=== PATIENT | female | born 1940 | race Caucasian/White ===

== ENCOUNTER → 2020-04-11 13:04 | Outpatient (BNVA) | payer MEDICARE, OTHER, SELFPAY | PROVIDERS: PCP Internal Medicine; Referring Provider Internal Medicine; Visit Provider Surgery | DX: C34.31 Malignant neoplasm of lower lobe, right bronchus or lung (principal); Z87.891 Personal history of nicotine dependence | CPT/HCPCS: 99205 ==

== ENCOUNTER 2020-04-11 14:25 | Outpatient (REF) | payer MEDICARE, OTHER, SELFPAY ==
--- NOTE | 2020-04-11 16:59 | PFT_ITS ---
FLOWS: FEV1 of 52% of predicted at 1.00 L. FVC 64% of predicted at 1.66 L. FEV1 to FVC ratio of 0.60. No bronchodilator response. LUNG VOLUMES: Total lung capacity 91% of predicted at 4.47 L. Residual volume 108% of predicted at 2.50 L. Slow vital capacity 75% of predicted at 1.97 L. Expiratory reserve volume 42% of predicted at 0.22 L. Diffusion capacity is severely decreased, diffusion capacity adjust to being moderately decreased after correction for alveolar ventilation. IMPRESSION: Moderate to severe obstructive ventilatory defect with no bronchodilator response. Decreased diffusion capacity suggests emphysema. MD MILKA Maurice/MODL / [id number]
== END 2020-04-11 14:26 | disposition home or self-care (01) ==
LOC: HO.RESP 14:25
PROVIDERS: Visit Provider Surgery
DX: R91.1 Solitary pulmonary nodule (principal)
CPT/HCPCS: 94060; 94727; 94729

== ENCOUNTER → 2020-05-02 08:45 | Outpatient (BNVA) | payer MEDICARE, OTHER, SELFPAY | PROVIDERS: PCP Internal Medicine; Visit Provider Surgery | DX: R91.1 Solitary pulmonary nodule (principal) | CPT/HCPCS: 99214 ==

== ENCOUNTER 2020-08-08 12:15 | Outpatient (REF) | payer MEDICARE, OTHER, SELFPAY ==
[2020-08-08 14:49] LABS: Hematocrit 37.3 % (37-47); Hemoglobin 11.4 g/dl (12.0-16.0); Mean Corpuscular HGB Conc 30.6 g/dl (31.0-35.0); Mean Corpuscular Hemoglobin 27.6 pg (27.0-33.0); Mean Corpuscular Volume 90.3 fL (80-98); Mean Platelet Volume 10.7 fL (9.4-12.3); Platelet Count 206 X10*3/uL (160-400); Red Blood Count 4.13 X10*6/uL (4.20-5.50); Red Cell Distribution Width 14.2 % (11.0-16.0); White Blood Count 6.8 X10*3/uL (4.8-10.8)
[2020-08-08 14:53] LABS: Estimated Average Glucose 146 mg/dL; Hemoglobin A1c % 6.7 %
[2020-08-08 15:14] LABS: Alanine Aminotransferase 20 U/L (0-31); Albumin Level 4.4 g/dL (3.5-5.0); Alkaline Phosphatase 56 U/L (39-117); Anion Gap 17 (12-20); Aspartate Amino Transferase 25 U/L (5-31); Bilirubin Total 0.5 mg/dL (0.0-1.0); Blood Urea Nitrogen 28 mg/dL (9-16); Calcium 8.9 mg/dL (8.4-10.2); Carbon Dioxide 20 mmol/L (22-29); Chloride 107 mmol/L (96-108); Estimated Glomerular Filt Rate 32; Glucose Fasting 109 mg/dL (60-99); Potassium 4.4 mmol/L (3.3-5.1); Sodium 140 mmol/L (135-145); Total Protein 7.7 g/dL (6.5-8.0)
== END 2020-08-08 12:16 | disposition home or self-care (01) ==
LOC: HO.HMGCLDS 12:15
PROVIDERS: PCP Internal Medicine; Visit Provider Internal Medicine
DX: R60.9 Edema, unspecified (principal); E11.22 Type 2 diabetes mellitus with diabetic chronic kidney disease; N18.30 Chronic kidney disease, stage 3 unspecified
CPT/HCPCS: 36415; 80048; 80053; 83036; 85027

== ENCOUNTER 2021-03-20 15:15 | Outpatient (REF) | payer MEDICARE, OTHER, SELFPAY ==
--- NOTE | ~2021-03-20 | XR_ITS ---
EXAMINATION: XR CHEST CLINICAL INFORMATION: J44.9 - Chronic obstructive pulmonary disease, unspecified COMPARISON: None TECHNIQUE: 2 views of the chest were obtained. FINDINGS: There is a small right effusion blunting the lateral and posterior costophrenic sulci. There is no lobar or segmental airspace consolidation or vascular congestion. The left costophrenic angles are well-defined. The heart is normal in size. The hilar and mediastinal contours and visualized bony structures are unremarkable. Surgical clips are seen in the upper abdomen on the lateral view. XR/XR chest 2V IMPRESSION: Small right effusion. Heart size normal. Vascularity normal.
== END 2021-03-20 15:16 | disposition home or self-care (01) ==
LOC: HO.HMGCX 15:15
PROVIDERS: PCP Internal Medicine; Visit Provider Internal Medicine
DX: J44.9 Chronic obstructive pulmonary disease, unspecified (principal)
CPT/HCPCS: 71046

== ENCOUNTER 2021-09-04 13:08 | Outpatient (REF) | payer MEDICARE, OTHER, SELFPAY ==
[2021-09-04 16:43] LABS: Hematocrit 34.6 % (37.0-47.0); Hemoglobin 10.6 g/dl (12.0-16.0); Mean Corpuscular HGB Conc 30.6 g/dl (31.0-35.0); Mean Corpuscular Volume 88.3 fL (80.0-98.0); Platelet Count 229 X10*3/uL (160-400); Red Blood Count 3.92 X10*6/uL (4.20-5.50); Red Cell Distribution Width 15.1 % (11.0-16.0); White Blood Count 6.6 X10*3/uL (4.8-10.8)
[2021-09-04 16:56] LABS: Alanine Aminotransferase 19 U/L (0-31); Albumin Level 4.2 g/dL (3.5-5.0); Alkaline Phosphatase 56 U/L (39-117); Anion Gap 15 (12-20); Aspartate Amino Transferase 18 U/L (5-31); Bilirubin Total 0.7 mg/dL (0.0-1.0); Blood Urea Nitrogen 25 mg/dL (9-16); Calcium 9.6 mg/dL (8.4-10.2); Carbon Dioxide 21 mmol/L (22-29); Chloride 106 mmol/L (96-108); Cholesterol 299 mg/dL; Creatinine Urine 66.69 mg/dL; Estimated Glomerular Filt Rate 34; Glucose Fasting 126 mg/dL (60-99); HDL Cholesterol 57 mg/dL; LDL Cholesterol Calculated 211 mg/dl; Microalbum/Creatinine Ratio Ur 239.9 ug/mg cr; Potassium 4.6 mmol/L (3.3-5.1); Sodium 137 mmol/L (135-145); Total Protein 7.4 g/dL (6.5-8.0); Triglycerides 157 mg/dL
[2021-09-04 16:57] LABS: Estimated Average Glucose 128 mg/dL; Hemoglobin A1c % 6.1 %
[2021-09-04 17:16] LABS: TSH reflex Free T4 4.01 uIU/mL (0.32-4.0)
[2021-09-04 18:05] LABS: Free T4 (Free Thyroxine) 0.94 ng/dL (0.71-1.85)
== END 2021-09-04 13:09 | disposition home or self-care (01) ==
LOC: HO.HMGCLDS 13:08
PROVIDERS: PCP Internal Medicine; Visit Provider Internal Medicine
DX: E78.5 Hyperlipidemia, unspecified (principal); J44.9 Chronic obstructive pulmonary disease, unspecified; I12.9 Hypertensive chronic kidney disease with stage 1 through stage 4 chronic kidney disease, or unspecified chronic kidney disease; E11.22 Type 2 diabetes mellitus with diabetic chronic kidney disease; N18.30 Chronic kidney disease, stage 3 unspecified
CPT/HCPCS: 36415; 80053; 80061; 82043; 83036; 84439; 84443; 85027

== ENCOUNTER 2022-01-13 11:07 | Outpatient (REF) | payer MEDICARE, OTHER, SELFPAY ==
--- NOTE | ~2022-01-13 | XR_ITS ---
EXAMINATION: XR CHEST CLINICAL INFORMATION: Cough. COMPARISON: March 20, 2021. TECHNIQUE: 2 views of the chest were obtained. XR/XR chest 2V FINDINGS/IMPRESSION: Blunting of the right costophrenic angle appears unchanged, suggesting small pleural fluid, pleural thickening, fibrotic changes, atelectasis, and/or infiltrate. The left lung appears clear. No pneumothorax is seen. The heart appears upper normal in size. The aorta is atherosclerotic. The patient is status post cholecystectomy.
== END 2022-01-13 11:08 | disposition home or self-care (01) ==
LOC: HO.HMGCX 11:07
PROVIDERS: PCP Internal Medicine; Visit Provider Internal Medicine
DX: R05.9 Cough, unspecified (principal)
CPT/HCPCS: 71046

== ENCOUNTER → 2022-04-09 13:29 | Outpatient (REF) | payer MEDICARE, OTHER, SELFPAY ==
--- NOTE | 2022-04-09 13:34 | CA_ITS ---
Transthoracic Echocardiogram Patient (Last, First, Middle): Cori Rogers, Gender: Female Date of : 1940 Age: 82 Procedure Date: 04/09/2022 Procedure Type: Transthoracic Echocardiogram Location: OP Height: 162.56 cm Weight: 66.68 kg BSA: 1.72 m2 Heart Rate: 75 bpm BP: 134 / 62 mmHg Blacking Wheel Tender: SB Referring MD: Jaimee Shah MD Logistics Management Specialist: Kit Brandt MD Symptoms: R60.9 - Edema, unspecified Study Quality: Adequate ECG Rhythm: Sinus Conclusions: - 1. Normal LV systolic function with grade 2 diastolic dysfunction 2. Mildly dilated right atrium 3. Mild aortic stenosis 4. Severely elevated right ventricular systolic pressure, immediately post walking to the stretcher her RV systolic pressure was 95 mmHg 5. No gross pericardial effusion Findings Left Ventricle Normal left ventricular size, thickness, and systolic function. The visually estimated ejection fraction is between 55-60%. Spectral Doppler is indicative of a pseudonormal filling pattern. E/E prime ratio is >15, consistent with elevated filling pressures. Evidence suggests grade II (moderate) diastolic dysfunction. Right Ventricle Normal right ventricular cavity size. There is mildly decreased right ventricular systolic function. Atria The left atrium is likely dilated. Interatrial shunt cannot be excluded. The right atrium is mildly dilated. Aortic Valve There is moderate calcification of the aortic valve. There is moderate thickening of the aortic valve. There is mild aortic valve stenosis. The peak aortic gradient is 15 mmHg.The mean gradient is 9 mmHg. There is no aortic valve regurgitation. Mitral Valve There is mild anterior and posterior mitral leaflet thickening. There is mild mitral annular calcification. There is trace mitral valve regurgitation. There is no mitral valve stenosis. Pulmonic Valve The pulmonic valve was not well visualized. Tricuspid Valve Normal tricuspid valve structure. There is moderate tricuspid valve regurgitation. Mildly elevated right atrial pressure. Severe pulmonary hypertension is present. Initial measurements of RV systolic pressure when patient walked to the examination table was measured at 95 mmHg. After resting and scanning for 15-20 minutes patient's RV systolic pressure had reduced to 65 mmHg still severely elevated Great Vessels All visible segments of the aorta are normal in size. The pulmonary artery was not well visualized. Venous The inferior vena cava is mildly dilated and collapses less than 50% with inspiration. Pericardium/Pleural There is no evidence of pericardial effusion. Prior Study Comparison No prior study available for comparison. Measurements 2D Linear Measurements IVSd: 0.72 0.6-0.9/0.6-1.0 cm LVIDd: 4.46 3.9-5.3/4.2-5.9 cm LVIDd Index: 2.59 2.4-3.2/2.2-3.1 cm/m2 LVIDs: 3.01 2.0-3.6 cm LVPWd: 1.01 0.7-1.1 cm LA Diam: 4.20 2.7-3.8/3.0-4.0 cm LAIDs Index: 2.44 1.5-2.3 cm/m2 LV Mass: 153.80 67-162/88-224 g LV Mass Index: 89.42 43-95/49-115 g/m2 LVOT Diam: 1.90 3.0+(-)1.3 cm 2D Systolic Function EF 4C: 62.60 >55% EF 2C: 53.90 >55% EF BiP: 57.80 >55% Mitral Valve MV Pk E: 1.22 MV PK A: 0.77 MV Decel Time: 197.00 E/A: 1.60 E'Lateral: 5.98 E'Medial: 6.09 E/E' Med: 20.00 E/E' Lat: 20.40 PHT: 58.00 MVA PHT: 3.79 Decel Nome: 6.19 Aortic Valve AoV Pk Deng: 1.94 AoV Mn Deng: 1.46 AoV VTI: 0.48 AoV Pk Grad: 15.00 Aov Mn Grad: 9.00 OSEAS Cont.VTI: 1.37 LVOT LVOT Pk Deng: 0.94 LVOT Mn Deng: 0.67 LVOT VTI: 0.24 LVOT Pk Grad: 4.00 LVOT Mn Grad: 2.00 LVOT Diam: 1.90 LVOT Area: 2.84 Diastolic Function MV Pk E: 1.22 MV Pk A: 0.77 E/A: 1.60 E'Medial: 6.09 E/E' Med: 20.00 E' Laterial: 5.98 E/E' Lat: 20.40 Tricuspid Valve TR Pk Deng: 4.66 TR Pk Grad: 87.00 RA Press: 8.00 RVSP: 95.00 Great Vessels Aorta Sinus of Valsalva: 2.80 2.0-3.5 cm Pulmonary Valve PV Pk Deng: 1.39 Peak PV Grad: 8.00 Updated in Other Vendor System with Status of Final Kit Brandt MD electronically signed on 04/09/2022 3:46:55 PM with status of Final
== END ==
LOC: HO.CARD 13:29
PROVIDERS: PCP Internal Medicine; Visit Provider Internal Medicine
DX: I50.9 Heart failure, unspecified (principal); R60.9 Edema, unspecified
CPT/HCPCS: 93306

== ENCOUNTER 2022-04-21 12:50 | Outpatient (REF) | payer MEDICARE, OTHER, SELFPAY ==
[2022-04-21 14:48] LABS: Anion Gap 17 (12-20); Blood Urea Nitrogen 30 mg/dL (9-16); Calcium 9.3 mg/dL (8.4-10.2); Carbon Dioxide 23 mmol/L (22-29); Chloride 106 mmol/L (96-108); Estimated Glomerular Filt Rate 30; Glucose Random 130 mg/dL (60-115); Potassium 4.8 mmol/L (3.3-5.1); Sodium 141 mmol/L (135-145)
== END 2022-04-21 12:51 | disposition home or self-care (01) ==
LOC: HO.HMGCLDS 12:50
PROVIDERS: PCP Internal Medicine; Visit Provider Internal Medicine
DX: I50.9 Heart failure, unspecified (principal); J44.9 Chronic obstructive pulmonary disease, unspecified; G47.30 Sleep apnea, unspecified; I27.20 Pulmonary hypertension, unspecified
CPT/HCPCS: 36415; 80048

== ENCOUNTER 2022-06-22 12:46 | Outpatient (REF) | payer MEDICARE, OTHER, SELFPAY ==
--- NOTE | ~2022-06-22 | US_ITS ---
EXAMINATION: ANKLE-BRACHIAL INDICES SINGLE LEVEL PULSE VOLUME RECORDING ARTERIAL DUPLEX BILATERAL LEGS CLINICAL INFORMATION: Peripheral vascular disease. COMPARISON: CTA 01/25/2020. TECHNIQUE: Ankle-brachial indices and PVR at the ankle were obtained. Duplex Doppler of the bilateral lower extremity arterial systems was performed. FINDINGS: RIGHT: Ankle-brachial index: 0.45 PVR: Abnormal Common femoral: Short segment occlusion. Deep femoral: PSV 57 cm/s. Biphasic waveform. Proximal superficial femoral: Occluded. Mid superficial femoral: PSV 27 cm/s. Biphasic waveform. Distal superficial femoral: PSV 89 cm/s. Monophasic waveform. Popliteal: PSV 47 cm/s. Monophasic waveform. Posterior tibial: PSV 20 cm/s. Monophasic waveform. Peroneal: PSV 27 cm/s. None of these waveform. LEFT: Ankle-brachial index: 0.40 PVR: Abnormal Common femoral: PSV 67 cm/s. Monophasic waveform. Deep femoral: PSV 37 cm/s. Monophasic waveform. Proximal superficial femoral: PSV 63 cm/s. Biphasic waveform. Mid superficial femoral: PSV 63 cm/s. 5 waveform. Distal superficial femoral: PSV 57 cm/s. Monophasic waveform. Popliteal: PSV 37 cm/s. Monophasic waveform. Posterior tibial: PSV 30 cm/s. Monophasic waveform. Peroneal: PSV 15 cm/s. Monophasic waveform. US/US arterial duplex LE BI IMPRESSION: Right: BILL 0.45. Abnormal PVR. Short segment occlusion common femoral artery appears new from prior CTA. Occluded proximal superficial femoral artery similar to prior CTA. Left: BILL 0.40. Abnormal PVR. Monophasic BLUING OVEN TENDER waveform indicates inflow disease. On the prior CTA the iliac artery was occluded.
== END 2022-06-22 12:47 | disposition home or self-care (01) ==
LOC: HO.US 12:46
PROVIDERS: PCP Internal Medicine; Visit Provider Surgery Vascular Surgery
DX: I70.213 Atherosclerosis of native arteries of extremities with intermittent claudication, bilateral legs (principal)
CPT/HCPCS: 93925

== ENCOUNTER → 2022-07-06 10:45 | Outpatient (REF) | payer MEDICARE, OTHER, SELFPAY | LOC: HO.SL 10:45 | PROVIDERS: Visit Provider Internal Medicine | DX: G47.30 Sleep apnea, unspecified (principal); R06.83 Snoring; I27.20 Pulmonary hypertension, unspecified; I73.9 Peripheral vascular disease, unspecified; I65.23 Occlusion and stenosis of bilateral carotid arteries; I83.11 Varicose veins of right lower extremity with inflammation | CPT/HCPCS: 95806; 99212 ==

== ENCOUNTER 2022-07-07 13:02 | Outpatient (REF) | payer MEDICARE, OTHER, SELFPAY ==
[2022-07-07 13:20] LABS: MANUAL DIFF FLAG NO
[2022-07-07 14:10] LABS: Basophils Absolute Auto 0.1 X10*3/uL (0.0-0.2); Basophils Percent Auto 1.2 % (0-2); Eosinophils Absolute Auto 0.1 X10*3/uL (0.0-0.4); Eosinophils Percent Auto 1.9 % (0-4); Hematocrit 37.2 % (37.0-47.0); Hemoglobin 11.6 g/dl (12.0-16.0); Imm Gran Abs Auto 0.05 X10*3/uL (0.00-0.03); Imm Gran Pct Auto 0.7 % (0.0-0.4); Lymphocytes Absolute Auto 1.3 X10*3/uL (1.2-4.9); Lymphocytes Percent Auto 17.8 % (20-40); Mean Corpuscular HGB Conc 31.2 g/dl (31.0-35.0); Mean Corpuscular Hemoglobin 27.8 pg (27.0-33.0); Mean Platelet Volume 10.2 fL (9.4-12.3); Monocytes Absolute Auto 0.6 X10*3/uL (0.1-1.2); Monocytes Percent Auto 7.5 % (2-11); Neutrophils Absolute Auto 5.3 x10*3/uL (2.0-8.3); Neutrophils Percent Auto 70.9 % (45-73); Platelet Count 225 X10*3/uL (160-400); Red Blood Count 4.18 X10*6/uL (4.20-5.50); Red Cell Distribution Width 15.1 % (11.0-16.0); White Blood Count 7.5 X10*3/uL (4.8-10.8)
[2022-07-07 14:15] LABS: Alanine Aminotransferase 20 U/L (0-31); Alkaline Phosphatase 54 U/L (39-117); Anion Gap 14 (12-20); Aspartate Amino Transferase 20 U/L (5-31); Blood Urea Nitrogen 28 mg/dL (9-16); Calcium 8.7 mg/dL (8.4-10.2); Carbon Dioxide 19 mmol/L (22-29); Chloride 113 mmol/L (96-108); Cholesterol 165 mg/dL; Estimated Glomerular Filt Rate 28; Glucose Fasting 225 mg/dL (60-99); HDL Cholesterol 41 mg/dL; LDL Cholesterol Calculated 101 mg/dl; Magnesium 1.7 mg/dL (1.6-2.6); Potassium 4.1 mmol/L (3.3-5.1); Sodium 142 mmol/L (135-145); Total Protein 6.5 g/dL (6.5-8.0); Triglycerides 117 mg/dL
[2022-07-07 14:24] LABS: Creatinine Urine 138.74 mg/dL; Microalbum/Creatinine Ratio Ur 125.4 ug/mg cr
[2022-07-07 14:45] LABS: Estimated Average Glucose 177 mg/dL; Hemoglobin A1c % 7.8 %
== END 2022-07-07 13:03 | disposition home or self-care (01) ==
LOC: HO.LAB 13:02
PROVIDERS: PCP Internal Medicine; Visit Provider Surgery Vascular Surgery
DX: E83.42 Hypomagnesemia (principal); E78.5 Hyperlipidemia, unspecified; C34.90 Malignant neoplasm of unspecified part of unspecified bronchus or lung; J44.9 Chronic obstructive pulmonary disease, unspecified; E11.51 Type 2 diabetes mellitus with diabetic peripheral angiopathy without gangrene; E11.22 Type 2 diabetes mellitus with diabetic chronic kidney disease; I13.0 Hypertensive heart and chronic kidney disease with heart failure and stage 1 through stage 4 chronic kidney disease, or unspecified chronic kidney disease; N18.30 Chronic kidney disease, stage 3 unspecified
CPT/HCPCS: 36415; 80053; 80061; 82043; 83036; 83735; 85025

== ENCOUNTER 2022-07-23 13:25 | Outpatient (REF) | payer MEDICARE, OTHER, SELFPAY ==
--- NOTE | ~2022-07-23 | MR_ITS ---
STUDY PERFORMED: MRA ABDOMEN, PELVIS AND LOWER EXTREMITY RUNOFF WITH CONTRAST CLINICAL HISTORY: Peripheral vascular disease. DESCRIPTION: Routine abdominal aorta and lower extremity runoff MRA protocol without and with contrast was performed. 30 mL of Gadavist was administered. 3D POSTPROCESSING: Multiple 3-D angiographic images were processed from the initial data set by the [facility] under concurrent physician supervision. COMPARISON: Arterial duplex 06/22/[address] abdomen and pelvis with runoff 01/25/2020. FINDINGS: VASCULAR: Abdominal Aorta: The descending thoracic aorta and the upper abdominal aorta are unremarkable. Severe atherosclerotic changes with multiple areas of narrowing and irregular plaque seen in the infrarenal abdominal aorta. Right Lower Extremity: - Common Iliac Artery: Marked atherosclerotic changes with multiple stenoses. - Internal Iliac Artery: Patent with marked atherosclerotic change. - External Iliac Artery: No significant disease. - Common Femoral Artery: Patent. - Profunda Femoral Artery: Patent. - Superficial Femoral Artery: Occluded proximally, reconstituted distally. - Popliteal Artery: No significant disease. - Tibioperoneal Trunk: Patent. - Posterior Tibial Artery: Small and occludes midcalf. - Peroneal Artery: Small with distal collateral going towards the posterior tibial artery territory. - Anterior Tibial Artery: Widely patent and the largest runoff vessel to the foot. Left Lower Extremity: - Common Iliac Artery: Occluded. - Internal Iliac Artery: Occluded. - External Iliac Artery: Occluded. - Common Femoral Artery: Reconstituted via collaterals. - Profunda Femoral Artery: Patent. - Superficial Femoral Artery: Patent. - Popliteal Artery: Patent. - Tibioperoneal Trunk: Patent. - Posterior Tibial Artery: Widely patent. - Peroneal Artery: Small caliber but patent to distal calf. - Anterior Tibial Artery: Free of disease but seems to end blindly before the dorsum of the foot with no flow seen into the foot. Celiomesenteric Arteries: There is a tight origin celiac stenosis. The SMA has mild proximal disease. There is an origin stenosis of the JAVIER. Renal Arteries: Single renal arteries present bilaterally with severe proximal stenoses. When comparison is made to the prior CTA from 01/25/2020, appearances are fairly similar. NONVASCULAR: A large fibroid uterus is again noted. MR/MR angio LE LT wo/w con IMPRESSION: 1. Severe atherosclerotic changes in the infrarenal abdominal aorta with multiple stenoses. 2. On the right, there are multiple external iliac stenoses with patent common femoral artery but occluded superficial femoral artery with reconstituted distal SFA/popliteal and good two-vessel runoff via the anterior tibial and peroneal arteries. 3. On the left, there is an occluded common iliac and external iliac artery with reconstituted common femoral artery and SFA with good three-vessel runoff. 4. Bilateral severe renal artery stenoses. 5. Other incidental findings as described above.
== END 2022-07-23 13:26 | disposition home or self-care (01) ==
LOC: HO.MRI 13:25
PROVIDERS: PCP Internal Medicine; Visit Provider Surgery Vascular Surgery
DX: I70.213 Atherosclerosis of native arteries of extremities with intermittent claudication, bilateral legs (principal)
CPT/HCPCS: 73725; 74185; A9585

== ENCOUNTER → 2022-07-27 12:54 | Outpatient (BNVA) | payer MEDICARE, OTHER, SELFPAY | PROVIDERS: PCP Internal Medicine; Visit Provider Surgery Vascular Surgery | DX: I65.23 Occlusion and stenosis of bilateral carotid arteries (principal); I83.11 Varicose veins of right lower extremity with inflammation; I73.9 Peripheral vascular disease, unspecified | CPT/HCPCS: 99212 ==

== ENCOUNTER → 2022-10-26 12:44 | Outpatient (BNVA) | payer MEDICARE, OTHER, SELFPAY | PROVIDERS: PCP Internal Medicine; Visit Provider Surgery Vascular Surgery | DX: I83.11 Varicose veins of right lower extremity with inflammation (principal); I65.23 Occlusion and stenosis of bilateral carotid arteries | CPT/HCPCS: 99212 ==

== ENCOUNTER 2022-11-16 12:37 | Outpatient (REF) | payer MEDICARE, OTHER, SELFPAY | END 2022-11-16 12:38 | disposition home or self-care (01) | LOC: HO.US 12:37 | PROVIDERS: PCP Internal Medicine; Visit Provider Surgery Vascular Surgery | DX: I83.11 Varicose veins of right lower extremity with inflammation (principal) | CPT/HCPCS: 93970 ==

== ENCOUNTER → 2022-11-25 10:47 | Outpatient (BNVA) | payer MEDICARE, OTHER, SELFPAY | PROVIDERS: PCP Internal Medicine; Visit Provider Surgery Vascular Surgery | DX: I83.11 Varicose veins of right lower extremity with inflammation (principal); I65.23 Occlusion and stenosis of bilateral carotid arteries; I73.9 Peripheral vascular disease, unspecified; I89.0 Lymphedema, not elsewhere classified | CPT/HCPCS: 99212 ==

== ENCOUNTER 2022-12-06 08:53 | Outpatient (AMB) | payer MEDICARE, OTHER, SELFPAY ==
[2022-12-06 08:57] VITALS: BP 120/64; PULSE 54; O2SAT 94; BMI 26.9
--- NOTE | 2022-12-06 08:57 | MHC.PC.OV ---
Vital Signs 12/06/22 08:57 Height 5 ft 2 in Weight 147 lb BMI 26.9 BP 120/64 Blood Pressure Location Lt brachial Position Sitting Pulse 54 Pulse Source Pulse Oximeter Pulse Oximetry (%) 94 Oxygen Delivery Method Room Air Intake Visit Reasons: Follow up complex Intake Note: Pt is here today for a follow up visit on DM. Allergies fluticasone furoate [From Trelegy Ellipta] Allergy (Intermediate, Verified 12/06/22 09:20) Cough umeclidinium [From Trelegy Ellipta] Allergy (Intermediate, Verified 12/06/22 09:20) Cough vilanterol [From Trelegy Ellipta] Allergy (Intermediate, Verified 12/06/22 09:20) Cough lisinopril Allergy (Unknown, Verified 12/06/22 09:20) hyperkalemia, worsening GFR Penicillins [PENICILLINS] Allergy (Unknown, Verified 12/06/22 09:20) RASH Medication List - Last Reconciled 12/06/22 by Jaimee Shah MD albuterol sulfate 90 mcg/actuation 2 puffs inhalation Q6H PRN amlodipine 2.5 mg PO DAILY Basaglar KwikPen U-100 Insulin (insulin glargine) 20 subcutaneously every evening; NS clobetasol 0.05% grams topical BID dapagliflozin propanediol (Farxiga) 10 mg PO DAILY difluprednate 0.05% 1 drp ophthalmic-Right DAILY dorzolamide-timolol 22.3-6.8 mg/mL 1 drp ophthalmic-Right DAILY ergocalciferol (vitamin D2) 1,250 mcg PO QWEEK flu vac qv 2019(18yr up)rc(PF) mL IM furosemide 20 mg PO DAILY hydralazine 50 mg PO BID metoprolol succinate ER 100 mg PO DAILY pen needle, diabetic As directed once a day to inject insulin pravastatin 40 mg PO DAILY Trelegy Ellipta 200-62.5-25 mcg ([id number]-kqkkfoszb-tknvlvra) 1 ea PO DAILY NS Tobacco use date assessed: 10/29/22 Dental Screening Dental Screen Date: 12/06/22 Did you have a dental visit in the last 12 months?: Yes Did you have a dental problem in the last 6 months where you did not have access to dental care?: No Was dental information given to patient?: Patient has dentist HPI Follow up complex HPI Details Pt presents for f/u HTN, hyperlipid,DM 2, CKD 3, stable on meds. Patient complains of worsening lower extremity swelling in the hot humid weather. 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 Patient cannot tolerate furosemide more than every other day because of leg cramps. She follows up with thoracic surgeon for new diagnosis of left lung nodule, question of cancer. Patient refuses to have a lung biopsy done. COPD stable on Trelegy. FORMERLY [facility] Medical History Cellulitis Chest pain CKD (chronic kidney disease), stage III COPD (chronic obstructive pulmonary disease) Diabetes Edema Enlarged uterus Glaucoma History of mammogram HTN (hypertension) Hyperlipidemia Hypomagnesemia Lung cancer Lung nodule PAD (peripheral artery disease) Pelvic mass Peripheral vascular disease Pneumonia Pruritus Surgical History H/O colonoscopy Family History Father No problems noted. Mother No problems noted. Social History Housing: House Alcohol intake: unknown Patient Tobacco Use Status: Former Tobacco user Quit Date: 4 years ago e-Cigarette/Vaping Use: Never Used Current occupational status: retired Cognitive needs: No Hearing needs: No Vision needs: No Questionnaire Thrive Questionnaire Date Thrive assessed: 08/24/22 OLIVIA-7 AMB Questionnaire OLIVIA-7 Date OLIVIA - 7 assessed: 08/24/22 Source: Developed by Drs. Tomasz Singh, Sandie Waller, Andrés Bobby and colleagues, with an educational shazia from [email or web address]. Review of Systems Const All systems reviewed & are unremarkable except as noted in HPI and below Reports no additional complaints Eyes Reports no additional complaints ENT Reports no additional complaints Card Reports no additional complaints Resp Reports no additional complaints GI Reports no additional complaints Reports no additional complaints Physical exam (Primary Care) Vital Signs: Last Vital Signs Pulse 54 12/06/22 08:57 BP 120/64 12/06/22 08:57 Pulse Ox 94 12/06/22 08:57 Oxygen Delivery Method Room Air 12/06/22 08:57 BMI result Body Mass Index 26.9 Tobacco/Smoking Status: Tobacco use Status Tobacco use date assessed 10/29/22 12/06/22 08:58 Patient Tobacco Use Status Former Tobacco user 12/06/22 08:58 e-Cigarette/Vaping Use Never Used 12/06/22 08:58 Thrive Assessment: Date of Thrive Assessment Date Thrive assessed 08/24/22 12/06/22 08:58 Const General: no acute distress HENMT Head: Yes normal to inspection Ears: hearing grossly normal bilaterally Face and sinus: Yes normal facial exam Neck Neck: Yes supple Resp Effort & Inspection: normal respiratory effort Auscultation: clear to auscultation bilaterally Cardio Rhythm: regular rhythm Heart sounds: S1 normal heart sound present and S2 normal heart sound present GI Inspection: Yes normal to inspection Percussion: Yes normal to percussion Auscultation: normal bowel sounds Extrem Other: + 2 pitting edema, chronic venous stasis Assessment and Plan Assessment & Plan (1) Lymphedema: Code(s): I89.0 - Lymphedema, not elsewhere classified Plan: Continue diuretic and elevation (2) Hyperlipidemia: Code(s): E78.5 - Hyperlipidemia, unspecified Plan: Continue statin (3) HTN (hypertension): Comment: Intolerant to ACEI/ARB hyperkalemia/ worsening renal function Code(s): I10 - Essential (primary) hypertension Plan: Continue current medications (4) COPD (chronic obstructive pulmonary disease): Code(s): J44.9 - Chronic obstructive pulmonary disease, unspecified Plan: Continue Trelegy (5) Diabetes: Comment: Metformin discontinued due to worsening renal function 02/11 Code(s): E11.9 - Type 2 diabetes mellitus without complications Plan: Patient will have fasting labs including A1c today (6) CKD (chronic kidney disease), stage III: Comment: Referred to turn down worker Code(s): N18.30 - Chronic kidney disease, stage 3 unspecified Plan: Avoid NSAIDs check renal function, follow-up in 3 months with a fasting labs before Coding Level of Care Code Est Pt Level 4 (06271) Diagnoses Lymphedema I89.0 Hyperlipidemia E78.5 HTN (hypertension) I10 COPD (chronic obstructive pulmonary disease) J44.9 Diabetes E11.9 CKD (chronic kidney disease), stage III N18.30
== END 2022-12-06 10:13 | disposition home or self-care (01) ==
PROVIDERS: PCP Internal Medicine; Visit Provider Internal Medicine
DX: E11.22 Type 2 diabetes mellitus with diabetic chronic kidney disease (principal); I12.9 Hypertensive chronic kidney disease with stage 1 through stage 4 chronic kidney disease, or unspecified chronic kidney disease; N18.30 Chronic kidney disease, stage 3 unspecified; J44.9 Chronic obstructive pulmonary disease, unspecified; E78.5 Hyperlipidemia, unspecified; I89.0 Lymphedema, not elsewhere classified
CPT/HCPCS: 99214

== ENCOUNTER 2022-12-06 09:54 | Outpatient (REF) | payer MEDICARE, OTHER, SELFPAY ==
[2022-12-06 13:31] LABS: MANUAL DIFF FLAG NO
[2022-12-06 13:54] LABS: Basophils Absolute Auto 0.1 X10*3/uL (0.0-0.2); Eosinophils Absolute Auto 0.3 X10*3/uL (0.0-0.4); Eosinophils Percent Auto 3.3 % (0-4); Hematocrit 40.5 % (37.0-47.0); Hemoglobin 12.5 g/dl (12.0-16.0); Imm Gran Abs Auto 0.05 X10*3/uL (0.00-0.03); Imm Gran Pct Auto 0.7 % (0.0-0.4); Lymphocytes Absolute Auto 1.6 X10*3/uL (1.2-4.9); Lymphocytes Percent Auto 20.8 % (20-40); Mean Corpuscular HGB Conc 30.9 g/dl (31.0-35.0); Mean Corpuscular Volume 90.6 fL (80.0-98.0); Mean Platelet Volume 10.5 fL (9.4-12.3); Monocytes Absolute Auto 0.9 X10*3/uL (0.1-1.2); Monocytes Percent Auto 11.3 % (2-11); Neutrophils Absolute Auto 4.8 x10*3/uL (2.0-8.3); Neutrophils Percent Auto 62.9 % (45-73); Platelet Count 220 X10*3/uL (160-400); Red Blood Count 4.47 X10*6/uL (4.20-5.50); Red Cell Distribution Width 14.8 % (11.0-16.0); White Blood Count 7.7 X10*3/uL (4.8-10.8)
[2022-12-06 14:21] LABS: Estimated Average Glucose 174 mg/dL; Hemoglobin A1c % 7.7 %
[2022-12-06 14:42] LABS: Alanine Aminotransferase 16 U/L (0-31); Albumin Level 4.3 g/dL (3.5-5.0); Alkaline Phosphatase 60 U/L (39-117); Anion Gap 13 (12-20); Aspartate Amino Transferase 18 U/L (5-31); Bilirubin Total 0.7 mg/dL (0.0-1.0); Blood Urea Nitrogen 46 mg/dL (9-16); Calcium 9.7 mg/dL (8.4-10.2); Carbon Dioxide 22 mmol/L (22-29); Chloride 109 mmol/L (96-108); Cholesterol 173 mg/dL; Estimated Glomerular Filt Rate 17; Glucose Fasting 190 mg/dL (60-99); HDL Cholesterol 44 mg/dL; LDL Cholesterol Calculated 111 mg/dl; Potassium 4.2 mmol/L (3.3-5.1); Sodium 140 mmol/L (135-145); Total Protein 7.4 g/dL (6.5-8.0); Triglycerides 90 mg/dL
== END 2022-12-06 09:55 | disposition home or self-care (01) ==
LOC: HO.HMGCLDS 09:54
PROVIDERS: PCP Internal Medicine; Visit Provider Internal Medicine
DX: I12.9 Hypertensive chronic kidney disease with stage 1 through stage 4 chronic kidney disease, or unspecified chronic kidney disease (principal); E11.22 Type 2 diabetes mellitus with diabetic chronic kidney disease; N18.30 Chronic kidney disease, stage 3 unspecified
CPT/HCPCS: 36415; 80053; 80061; 83036; 85025

== ENCOUNTER 2023-01-25 11:58 | Outpatient (AMB) | payer MEDICARE, OTHER, SELFPAY ==
--- NOTE | 2023-01-25 12:34 | MHC.PC.OV ---
Vital Signs 01/25/23 12:55 Height 5 ft 2 in Weight 145 lb BMI 26.5 BP 124/62 Blood Pressure Location Lt brachial Position Sitting Pulse 68 Pulse Source Pulse Oximeter Pulse Oximetry (%) 95 Oxygen Delivery Method Room Air Intake Visit Reasons: congestion cough same as last time Intake Note: Pt is here today for a sick visit. Pt c/o congestion cough for week and a half. Allergies fluticasone furoate [From Trelegy Ellipta] Allergy (Intermediate, Verified 01/25/23 13:05) Cough umeclidinium [From Trelegy Ellipta] Allergy (Intermediate, Verified 01/25/23 13:05) Cough vilanterol [From Trelegy Ellipta] Allergy (Intermediate, Verified 01/25/23 13:05) Cough lisinopril Allergy (Unknown, Verified 01/25/23 13:05) hyperkalemia, worsening GFR Penicillins [PENICILLINS] Allergy (Unknown, Verified 01/25/23 13:05) RASH Medication List - Last Reconciled 01/25/23 by Jaimee Shah MD albuterol sulfate 90 mcg/actuation 2 puffs inhalation Q6H PRN amlodipine 2.5 mg PO DAILY clobetasol 0.05% grams topical BID dapagliflozin propanediol (Farxiga) 10 mg PO DAILY difluprednate 0.05% 1 drp ophthalmic-Right DAILY dorzolamide-timolol 22.3-6.8 mg/mL 1 drp ophthalmic-Right DAILY ergocalciferol (vitamin D2) 1,250 mcg PO QWEEK flu vac qv 2019(18yr up)rc(PF) mL IM furosemide 20 mg PO DAILY hydralazine 50 mg PO BID insulin glargine (Basaglar KwikPen U-100 Insulin) 20 subcutaneously daily; metoprolol succinate ER 100 mg PO DAILY pen needle, diabetic As directed once a day to inject insulin pravastatin 40 mg PO DAILY Trelegy Ellipta 200-62.5-25 mcg (dokqtaqbueg-nvcqvogcv-[id number]) 1 ea PO DAILY NS Tobacco use date assessed: 10/29/22 HPI congestion cough same as last time HPI Details Pt c/o chest congestion, productive cough increased wheezing and shortness of breath for 1 week. Patient denies chest pain fever chills pleurisy hemoptysis. She has been taking Trelegy and albuterol updraft 4 times a day [facility]LY [facility] Medical History Cellulitis Chest pain CKD (chronic kidney disease), stage III COPD (chronic obstructive pulmonary disease) Diabetes Edema Enlarged uterus Glaucoma History of mammogram HTN (hypertension) Hyperlipidemia Hypomagnesemia Lung cancer Lung nodule PAD (peripheral artery disease) Pelvic mass Peripheral vascular disease Pneumonia Pruritus Surgical History H/O colonoscopy Family History Father No problems noted. Mother No problems noted. Social History Housing: House Alcohol intake: unknown Patient Tobacco Use Status: Former Tobacco user Quit Date: 4 years ago e-Cigarette/Vaping Use: Never Used Current occupational status: retired Cognitive needs: No Hearing needs: No Vision needs: No Questionnaire Thrive Questionnaire Date Thrive assessed: 08/24/22 OLIVIA-7 AMB Questionnaire OLIVIA-7 Date OLIVIA - 7 assessed: 08/24/22 Source: Developed by Drs. Tomasz Singh, Sandie Waller, Andrés Bobby and colleagues, with an educational shazia from [employer]. Review of Systems Const All systems reviewed & are unremarkable except as noted in HPI and below Reports no additional complaints Eyes Reports no additional complaints ENT Reports no additional complaints Card Reports no additional complaints Resp Reports no additional complaints GI Reports no additional complaints Reports no additional complaints Physical exam (Primary Care) Vital Signs: Last Vital Signs Pulse 68 01/25/23 12:55 BP 124/62 01/25/23 12:55 Pulse Ox 95 01/25/23 12:55 Oxygen Delivery Method Room Air 01/25/23 12:55 BMI result Body Mass Index 26.5 Tobacco/Smoking Status: Tobacco use Status Tobacco use date assessed 10/29/22 01/25/23 12:34 Patient Tobacco Use Status Former Tobacco user 01/25/23 12:34 e-Cigarette/Vaping Use Never Used 01/25/23 12:34 Thrive Assessment: Date of Thrive Assessment Date Thrive assessed 08/24/22 01/25/23 12:34 Const General: anxious HENMT Head: Yes normal to inspection Eyes General: appearance normal, both eyes and all related structures Resp Effort & Inspection: able to speak in complete sentences and tachypneic Auscultation: wheezes and diminished lung sounds Cardio Rhythm: regular rhythm Heart sounds: S1 normal heart sound present and S2 normal heart sound present Assessment and Plan Assessment & Plan (1) COPD (chronic obstructive pulmonary disease): Code(s): J44.9 - Chronic obstructive pulmonary disease, unspecified Plan: For COPD exacerbation prednisone 40 mg for 5 days followed by 20 mg daily for 5 days, Z-Eduardo and doxycycline are prescribed and supportive care discussed with the patient. Medications: New azithromycin For 250 mg dose pack: take 500 mg today (day 1), then 250 mg for 4 days (days 2-5) PO 6 tabs 0RF prednisone 2 tabl qd x 5 days, then 1 tabl qd x 5 days 20 mg PO DAILY 15 tabs 0RF doxycycline hyclate 100 mg PO BID 20 tabs 0RF Coding Level of Care Code Est Pt Level 3 (91240) Diagnoses COPD (chronic obstructive pulmonary disease) J44.9
[2023-01-25 12:55] VITALS: BP 124/62; PULSE 68; O2SAT 95; BMI 26.5
== END 2023-01-25 13:26 | disposition home or self-care (01) ==
PROVIDERS: PCP Internal Medicine; Visit Provider Internal Medicine
DX: J44.9 Chronic obstructive pulmonary disease, unspecified (principal)
CPT/HCPCS: 99213

== ENCOUNTER 2023-03-03 11:50 | Outpatient (AMB) | payer MEDICARE, OTHER, SELFPAY ==
[2023-03-03 11:51] VITALS: BP 134/60; PULSE 67; O2SAT 90; BMI 26.5
--- NOTE | 2023-03-03 11:51 | MHC.PC.OV ---
Vital Signs 03/03/23 11:51 Height 5 ft 2 in Weight 145 lb BMI 26.5 BP 134/60 Blood Pressure Location Lt brachial Position Sitting Pulse 67 Pulse Source Pulse Oximeter Pulse Oximetry (%) 90 L Oxygen Delivery Method Room Air Intake Visit Reasons: 3 months Follow up complex Intake Note: Pt is here today for 3 months follow up visit.Pt states that 2 weeks she was feeling great had no swelling in her legs and feet and now its back the swelling and breathing issue. Pt states that she needs a script for a new Nebulizer. Priya phone number [phone]. Allergies fluticasone furoate [From Trelegy Ellipta] Allergy (Intermediate, Verified 01/25/23 13:05) Cough umeclidinium [From Trelegy Ellipta] Allergy (Intermediate, Verified 01/25/23 13:05) Cough vilanterol [From Trelegy Ellipta] Allergy (Intermediate, Verified 01/25/23 13:05) Cough lisinopril Allergy (Unknown, Verified 01/25/23 13:05) hyperkalemia, worsening GFR Penicillins [PENICILLINS] Allergy (Unknown, Verified 01/25/23 13:05) RASH Medication List - Last Reconciled 03/03/23 by Jaimee Shah MD albuterol sulfate 90 mcg/actuation 2 puffs inhalation Q6H PRN amlodipine 2.5 mg PO DAILY azithromycin For 250 mg dose pack: take 500 mg today (day 1), then 250 mg for 4 days (days 2-5) PO clobetasol 0.05% grams topical BID dapagliflozin propanediol (Farxiga) 10 mg PO DAILY difluprednate 0.05% 1 drp ophthalmic-Right DAILY dorzolamide-timolol 22.3-6.8 mg/mL 1 drp ophthalmic-Right DAILY doxycycline hyclate 100 mg PO BID ergocalciferol (vitamin D2) 1,250 mcg PO QWEEK flu vac qv 2019(18yr up)rc(PF) mL IM furosemide 20 mg PO DAILY hydralazine 50 mg PO BID insulin glargine (Basaglar KwikPen U-100 Insulin) 20 subcutaneously daily; metoprolol succinate ER 100 mg PO DAILY pen needle, diabetic As directed once a day to inject insulin pravastatin 40 mg PO DAILY prednisone 20 mg PO DAILY Trelegy Ellipta 200-62.5-25 mcg ([id number]) 1 ea PO DAILY NS Tobacco use date assessed: 03/03/23 Dental Screening Dental Screen Date: 03/03/23 Did you have a dental visit in the last 12 months?: No Did you have a dental problem in the last 6 months where you did not have access to dental care?: No Was dental information given to patient?: Patient declined HPI 3 months Follow up complex HPI Details Patient presents for the follow-up of COPD type 2 diabetes hypertension hyperlipidemia chronic kidney disease. Patient reports sinus congestion, postnasal drip, productive cough with yellow sputum for 5 days. She denies fever chills pleurisy. [facility] Medical History Hypomagnesemia Chest pain Pneumonia Pruritus Hyperlipidemia Lung cancer Edema Cellulitis Pelvic mass Lung nodule PAD (peripheral artery disease) History of mammogram Glaucoma CKD (chronic kidney disease), stage III Peripheral vascular disease Diabetes COPD (chronic obstructive pulmonary disease) HTN (hypertension) Enlarged uterus Surgical History H/O colonoscopy Family History Father No problems noted. Mother No problems noted. Social History Housing: House Alcohol intake: unknown Patient Tobacco Use Status: Former Tobacco user Quit Date: 4 years ago e-Cigarette/Vaping Use: Never Used Current occupational status: retired Cognitive needs: No Hearing needs: No Vision needs: No Questionnaire Thrive Questionnaire Date Thrive assessed: 08/24/22 OLIVIA-7 AMB Questionnaire OLIVIA-7 Date OLIVIA - 7 assessed: 08/24/22 Source: Developed by Drs. Tomasz Singh, Sandie Waller, Andrés Bobby and colleagues, with an educational shazia from [employer]. Review of Systems Const All systems reviewed & are unremarkable except as noted in HPI and below Reports no additional complaints Eyes Reports no additional complaints ENT Reports no additional complaints Card Reports no additional complaints Resp Reports no additional complaints GI Reports no additional complaints Reports no additional complaints Physical exam (Primary Care) Vital Signs: Last Vital Signs Pulse 67 03/03/23 11:51 BP 134/60 03/03/23 11:51 Pulse Ox 90 L 03/03/23 11:51 Oxygen Delivery Method Room Air 03/03/23 11:51 BMI result Body Mass Index 26.5 Tobacco/Smoking Status: Tobacco use Status Tobacco use date assessed 03/03/23 03/03/23 11:58 Patient Tobacco Use Status Former Tobacco user 03/03/23 11:58 e-Cigarette/Vaping Use Never Used 03/03/23 11:58 Thrive Assessment: Date of Thrive Assessment Date Thrive assessed 08/24/22 03/03/23 11:58 Const General: no acute distress HENMT Head: Yes normal to inspection General nose exam: Normal external nose present Mouth: Normal oral and palatal mucosa present Neck Neck: Yes no lymphadenopathy and Yes supple Resp Effort & Inspection: normal respiratory effort Auscultation: rhonchi and diminished lung sounds Cardio Rhythm: regular rhythm Heart sounds: S1 normal heart sound present and S2 normal heart sound present GI Inspection: Yes normal to inspection Palpation (GI): Soft to palpation Percussion: Yes normal to percussion Auscultation: normal bowel sounds Assessment and Plan Assessment & Plan (1) Hyperlipidemia: Code(s): E78.5 - Hyperlipidemia, unspecified Plan: cont statin (2) HTN (hypertension): Comment: Intolerant to ACEI/ARB hyperkalemia/ worsening renal function Code(s): I10 - Essential (primary) hypertension Plan: cont meds (3) CKD (chronic kidney disease), stage III: Comment: Referred to [facility] Code(s): N18.30 - Chronic kidney disease, stage 3 unspecified Plan: monitor renal function, cont Farxiga (4) COPD (chronic obstructive pulmonary disease): Code(s): J44.9 - Chronic obstructive pulmonary disease, unspecified Plan: For COPD exacerbation Z-Eduardo doxycycline and prednisone taper as prescribed. Patient will continue Trelegy and albuterol updraft (5) Diabetes: Comment: Metformin discontinued due to worsening renal function 02/11 Code(s): E11.9 - Type 2 diabetes mellitus without complications Plan: A1c is 9.3, ADA diet discussed. Patient will increase insulin to 40 units and start monitoring blood glucose with Libre3 meter. 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 Panel Fast 3 Months E78.5 - Hyperlipidemia, unspecified, I10 - Essential (primary) hypertension, N18.30 - Chronic kidney disease, stage 3 unspecified Complete Blood Count Auto Diff 3 Months E78.5 - Hyperlipidemia, unspecified, I10 - Essential (primary) hypertension, N18.30 - Chronic kidney disease, stage 3 unspecified Lipid Panel 3 Months E78.5 - Hyperlipidemia, unspecified, I10 - Essential (primary) hypertension, N18.30 - Chronic kidney disease, stage 3 unspecified Hemoglobin A1c 3 Months E78.5 - Hyperlipidemia, unspecified, I10 - Essential (primary) hypertension, N18.30 - Chronic kidney disease, stage 3 unspecified Microalbumin, Random (w Creat) 3 Months E78.5 - Hyperlipidemia, unspecified, I10 - Essential (primary) hypertension, N18.30 - Chronic kidney disease, stage 3 unspecified Medications: New blood-glucose sensor ([employer] Jody 3 Sensor device) As directed 2 ea 4RF Changed From insulin glargine (Basaglar KwikPen U-100 Insulin) 20 subcutaneously daily; To insulin glargine (Basaglar KwikPen U-100 Insulin) 40 units subcut DAILY Refilled azithromycin For 250 mg dose pack: take 500 mg today (day 1), then 250 mg for 4 days (days 2-5) PO 6 tabs 0RF doxycycline hyclate 100 mg PO BID 20 tabs 0RF prednisone 2 tabl qd x 5 days, then 1 tabl qd x 5 days 20 mg PO DAILY 15 tabs 0RF Coding Level of Care Code Est Pt Level 4 (26213) Diagnoses Hyperlipidemia E78.5 HTN (hypertension) I10 CKD (chronic kidney disease), stage III N18.30 COPD (chronic obstructive pulmonary disease) J44.9 Diabetes E11.9 Lung cancer C34.90
== END 2023-03-03 12:46 | disposition home or self-care (01) ==
PROVIDERS: PCP Internal Medicine; Visit Provider Internal Medicine
DX: I12.9 Hypertensive chronic kidney disease with stage 1 through stage 4 chronic kidney disease, or unspecified chronic kidney disease (principal); N18.30 Chronic kidney disease, stage 3 unspecified; J44.9 Chronic obstructive pulmonary disease, unspecified; E11.22 Type 2 diabetes mellitus with diabetic chronic kidney disease; C34.90 Malignant neoplasm of unspecified part of unspecified bronchus or lung; E78.5 Hyperlipidemia, unspecified
CPT/HCPCS: 99214

== ENCOUNTER 2023-05-25 12:11 | Outpatient (AMB) | payer MEDICARE, OTHER, SELFPAY ==
--- NOTE | 2023-05-25 12:23 | AM.OFFVISMDC ---
Intake Vital Signs 05/25/23 12:24 Height 5 ft 2 in Weight 158 lb BMI 28.9 BP 138/72 Blood Pressure Location Lt brachial Position Sitting Pulse 90 Pulse Source Pulse Oximeter Pulse Oximetry (%) 80 L Oxygen Delivery Method Room Air Intake Visit Reasons: SWV G4039 Intake Note: Pt is here today for AWV. Pt states that she needs oxygen at home. Pt states that she started chemotherapy. Pt would like the script for Oxygen send to [facility]. Allergies fluticasone furoate [From Trelegy Ellipta] Allergy (Intermediate, Verified 05/25/23 12:42) Cough umeclidinium [From Trelegy Ellipta] Allergy (Intermediate, Verified 05/25/23 12:42) Cough vilanterol [From Trelegy Ellipta] Allergy (Intermediate, Verified 05/25/23 12:42) Cough lisinopril Allergy (Unknown, Verified 05/25/23 12:42) hyperkalemia, worsening GFR Penicillins [PENICILLINS] Allergy (Unknown, Verified 05/25/23 12:42) RASH Medication List - Last Reconciled 05/25/23 by Jaimee Shah MD albuterol sulfate 90 mcg/actuation 2 puffs inhalation Q6H PRN amlodipine 2.5 mg PO DAILY blood-glucose sensor ([employer] Jody 3 Sensor device) As directed clobetasol 0.05% grams topical BID dapagliflozin propanediol (Farxiga) 10 mg PO DAILY difluprednate 0.05% 1 drp ophthalmic-Right DAILY dorzolamide-timolol 22.3-6.8 mg/mL 1 drp ophthalmic-Right DAILY ergocalciferol (vitamin D2) 1,250 mcg PO QWEEK flu vac qv 2020(18yr up)rc(PF) mL IM furosemide 20 mg PO DAILY hydralazine 50 mg PO BID insulin glargine (Basaglar KwikPen U-100 Insulin) 20 units (0.2 mL) subcut DAILY metoprolol succinate ER 100 mg PO DAILY nebulizers Nebulizer and supplies to use for updraft treatments Oxygen Home Use 1 liter contineous for O sat <90% for in home and portable pen needle, diabetic As directed once a day to inject insulin pravastatin 40 mg PO DAILY Trelegy Ellipta 200-62.5-25 mcg ([id number]) 1 ea PO DAILY NS HPI SWV G4039 HPI Details Patient presents for annual visit. She started radiation therapy for advanced lung cancer and reports increasing shortness of breath and dyspnea on exertion. Her home Initiated the conversation about Advanced Directives. Advanced Directives help? patients prepare for current and future decisions about their medical treatment? and place of care. Discussed with patient that it is a process where a patients? current condition and prognosis are reviewed, their wishes for information? regarding their illness are elicited, and likely medical dilemmas are presented? and options discussed. The form can be amended as needed, reviewed yearly and? make changes as needed IPPE/AWV ? year old presents? for her ? Annual? Wellness Visit, initial visit.? Medical / Social History Reviewed? Past Medical History ?Yes? . ? [place]? of Care / Care Team list updated ?Yes . ? Surgical/Hospitalization? History ?Yes . ? Current Medications? (including OTC and supplements) ?Yes . ? Family History ?Yes? . ? Tobacco? Control form ?Yes . ? AUDIT-C (Alcohol use) form? ?Yes . ? Illicit drug use in Social? History ?Yes . ? Current diagnosis of? depression? ?No ? Appropriate PHQ2/PHQ9? completed ?Yes . ? Data entered by ?Medical? Script Supervisor and reviewed by provider ? Fall Risk ? Fall? History? Have you had any falls with? injury in the past year? ?No . ? Have you had two or more? falls in the past year? ?No . ? Fall Risk Assessment: ?No? falls in the past year . ? HRA filled out by? the patient, reviewed by Provider and scanned. ? IPPE/AWV ? Balance? [place]? ?Yes . ? Tandem? walk ?Yes . ? Walk and? Turn ?Yes . ? Rise from? sit to stand ?Yes . ?Vision? Corrective? lens ?Yes ? Vision? screen ? Up-to-date, has an appointment [] for vision? screening and glaucoma screening ?Hearing? Whisper? test ?pass .? Initiated the conversation about Advanced Directives. Advanced Directives help? patients prepare for current and future decisions about their medical treatment? and place of care. Discussed with patient that it is a process where a patients? current condition and prognosis are reviewed, their wishes for information? regarding their illness are elicited, and likely medical dilemmas are presented? and options discussed. The form can be amended as needed, reviewed yearly and? make changes as needed Written? Plan?Completed. See Patient? Documents. oxygen saturation level has been in low 80s. Patient denies chest pain palpitations. [facility] Medical History Hypomagnesemia Chest pain Pneumonia Pruritus Hyperlipidemia Lung cancer Edema Cellulitis Pelvic mass Lung nodule PAD (peripheral artery disease) History of mammogram Glaucoma CKD (chronic kidney disease), stage III Peripheral vascular disease Diabetes COPD (chronic obstructive pulmonary disease) HTN (hypertension) Enlarged uterus Surgical History H/O colonoscopy Family History Father No problems noted. Mother No problems noted. Social History Housing: House Alcohol intake: unknown Patient Tobacco Use Status: Former Tobacco user Quit Date: 4 years ago e-Cigarette/Vaping Use: Never Used Current occupational status: retired Cognitive needs: No Hearing needs: No Vision needs: No Questionnaire Medicare Wellness Checkup What is your age?: 82 or older What gender do you identify with?: female During the past 4 weeks, how much have you been bothered by emotional problems such as feeling anxious, depressed, irritable, sad or downhearted, and blue?: not at all During the past 4 weeks, has your physical & emotional health limited your social activities with family, friends, neighbors, or groups?: slightly During the past 4 weeks, how much bodily pain have you generally had?: very mild pain During the past 4 weeks, was someone available to help you if you needed & wanted help?: yes, a little During the past 4 weeks, what was the hardest physical activity you could do for at least 2 minutes?: very light Can you get to places out of walking distance without help? (For eg., can you travel alone on buses, taxis or drive your car?): Yes Can you go shopping for groceries or clothes without someone's help?: Yes Can you prepare your own meals?: Yes Can you do your housework without help?: Yes Because of any health problems, do you need the help of another person with your personal care needs such as eating, bathing, dressing or getting around the house?: Yes Can you handle your own money without help?: Yes During the past 4 weeks, how would you rate your health in general?: good During the past 4 weeks how have things been going for you?: good & bad parts about equal Are you having difficulties driving your car?: not applicable, I don't use a car Do you always fasten your seat belt when you are in a car?: yes, usually During past 4 weeks, have you been bothered by the following: never: Falling or dizzy when standing up, Sexual problems?, Trouble eating well?, Teeth or denture problems? and Problems using the telephone? and always: Tiredness or fatigue? Have you fallen 2 or more times in the past year?: No Are you afraid of falling?: No Are you a smoker?: no During the past 4 weeks, how many drinks of wine, beer, or other alcoholic beverages did you have?: no alcohol at all Do you exercise for about 20 minutes 3 or more times a week?: no, I usually do not exercise this much Have you been given information to help with the following?: no: Hazards in your house that might hurt you? and no: Keeping track of your medications? How often do you have trouble taking medicines the way you have been told to take them?: I always take medicine as prescribed How confident are you that you can control & manage most of your health problems?: somewhat confident What is your race?: White Mini Mental State Exam (MMSE) Orientation What is the (year) (season) (date) (day) (month)?: year, season, date, day and month Where are we (state) (county) (town or city) (hospital) (floor)?: state, county, town or city, hospital/clinic and floor Registration Name of 3 unrelated objects clearly and slowly, then ask patient to repeat all 3 of them. (1st repeat determines score. Make sure they can repeat all three): object 1, object 2 and object 3 Recall Ask patient to repeat the 3 items from question #3.: object 1, object 2 and object 3 Language Show patient a wristwatch & ask what it is. Repeat for pencil.: watch and pencil Ask the patient to repeat the phrase 'No ifs, ands, or buts' after you.: correct Ask the patient to 'take a piece of paper with their right hand' 'fold paper in half' 'place paper on floor': take paper in right hand, fold paper in half and place paper on floor Print the sentence 'CLOSE YOUR EYES' on a piece. If patient actually closes eyes then score.: followed written direction Give patient a blank piece of paper & ask to write a sentence. Score if it contains a noun & verb.: sentence contains subject and verb Score Score: 24 PHQ-9 Over the last 2 weeks, how often have you been bothered by any of the following problems? 1. Little interest or pleasure in doing things: not at all 2. Feeling down, depressed, or hopeless: not at all 3. Trouble falling or staying asleep, or sleeping too much: more than half the days 4. Feeling tired or having little energy: several days 5. Poor appetite or overeating: several days 6. Feeling bad about yourself - or that you are a failure or have let yourself or your family down: not at all 7. Trouble concentrating on things, such as reading the newspaper or watching television: not at all 8. Moving or speaking so slowly that other people could have noticed. Or the opposite - being so fidgety or restless that you have been moving around a lot more than usual: not at all 9. Thoughts that you would be better off or of hurting yourself in some way: not at all Total score: 4 Depression Screening Interpretation: Negative Depression Screening Done: Yes Source: Developed by Drs. Tomasz Singh, Sandie Waller, Andrés Bobby and colleagues, with an educational shazia from [employer]. Review of Systems Const All systems reviewed & are unremarkable except as noted in HPI and below Reports as per HPI Eyes Reports no additional complaints ENT Reports no additional complaints Card Reports as per HPI Resp Reports as per HPI GI Reports no additional complaints Reports no additional complaints Physical Exam Vital Signs: Last Vital Signs Pulse 90 05/25/23 12:24 BP 138/72 05/25/23 12:24 Pulse Ox 80 L 05/25/23 12:24 Oxygen Delivery Method Room Air 05/25/23 12:24 BMI result Body Mass Index 28.9 Const General: tired appearing HEENT Head: Yes normal to inspection Ears: hearing grossly normal bilaterally Face and sinus: Yes normal facial exam Neck Neck: Yes supple Resp Effort & Inspection: labored Auscultation: crackles on the right and diminished lung sounds Cardio Rhythm: regular rhythm Heart sounds: S1 normal heart sound present and S2 normal heart sound present GI Inspection: Yes normal to inspection Palpation (GI): Soft to palpation Extrem Other: 3+ pitting edema bilaterally Assessment & Plan Assessment & Plan (1) CHF (congestive heart failure): Comment: Right-sided heart failure due to pulmonary hypertension Echo 04/13 Code(s): I50.9 - Heart failure, unspecified Plan: Increase furosemide to 40 mg a day check comprehensive panel CBC and BMP in 1 week by [facility] (2) COPD (chronic obstructive pulmonary disease): Code(s): J44.9 - Chronic obstructive pulmonary disease, unspecified Plan: Continue Trelegy and albuterol as needed. Patient O2 saturation at rest was 80%, improved to 94 % on 2 L nasal cannula. Patient's O2 dropped to 91% after 2 minute walk. Patient needs 24 hours supplemental O2 at 1 L per minute while at rest, increase to 2 L per min with exertion. (3) CKD (chronic kidney disease), stage III: Comment: Referred to [facility] Code(s): N18.30 - Chronic kidney disease, stage 3 unspecified Plan: Monitor renal function check comprehensive panel in 1 week (4) Diabetes: Comment: Metformin discontinued due to worsening renal function 02/11 Code(s): E11.9 - Type 2 diabetes mellitus without complications Plan: Continue insulin and Farxiga. Patient will continue to monitor her fasting blood glucose (5) Hypoxia: Code(s): R09.02 - Hypoxemia Plan: Start supplemental O2 (6) Lung cancer: Comment: RLL, s/p bx, squamous cell CA, RTx 06/2020, Code(s): C34.90 - Malignant neoplasm of unspecified part of unspecified bronchus or lung Plan: Follow-up with oncology, radiation oncology and pulmonology Orders: Orders Comprehensive Met. Panel Today I50.9 - Heart failure, unspecified, J44.9 - Chronic obstructive pulmonary disease, unspecified, N18.30 - Chronic kidney disease, stage 3 unspecified, R09.02 - Hypoxemia Complete Blood Count no Diff Today I50.9 - Heart failure, unspecified, J44.9 - Chronic obstructive pulmonary disease, unspecified, N18.30 - Chronic kidney disease, stage 3 unspecified, R09.02 - Hypoxemia B Type Natriuretic Peptide Today I50.9 - Heart failure, unspecified, J44.9 - Chronic obstructive pulmonary disease, unspecified, N18.30 - Chronic kidney disease, stage 3 unspecified, R09.02 - Hypoxemia Referrals [facility] Referral E11.9 - Type 2 diabetes mellitus without complications, I50.9 - Heart failure, unspecified, J44.9 - Chronic obstructive pulmonary disease, unspecified, N18.30 - Chronic kidney disease, stage 3 unspecified, R09.02 - Hypoxemia Medications: New Oxygen Home Use 1 liter contineous for O sat <90% for in home and portable 1 ea 0RF Oxygen Home Use 1 lpm contineous for O sat <90%, 2 lpm with exertion, for in home and portable 1 ea 0RF C34.90 - Malignant neoplasm of unspecified part of unspecified bronchus or lung, G47.34 - Idiopathic sleep related nonobstructive alveolar hypoventilation Oxygen Home Use 1 lpm continuous O sat <90%, 2 lpm with exertion, for in home and portable 1 ea 0RF C34.90 - Malignant neoplasm of unspecified part of unspecified bronchus or lung, G47.34 - Idiopathic sleep related nonobstructive alveolar hypoventilation Quality Reporting (2019) Depression/Bipolar (159/160/161/177) PHQ-9: Total score: 4 Coding Level of Care Code Medicare Subsequent (G0439) Diagnoses CHF (congestive heart failure) I50.9 COPD (chronic obstructive pulmonary disease) J44.9 CKD (chronic kidney disease), stage III N18.30 Diabetes E11.9 Hypoxia R09.02 Lung cancer C34.90 CPT Codes Advance Care Planning - Time spent: 1-15 minutes, not on file ([id number]) Advance Care Planning Advance Care Planning discussion: Exists, not on file Forms completed: Health Care Proxy Time spent: 1-15 minutes, not on file
[2023-05-25 12:24] VITALS: BP 138/72; PULSE 90; O2SAT 80; BMI 28.9
== END 2023-05-25 13:37 | disposition home or self-care (01) ==
PROVIDERS: Visit Provider Internal Medicine
DX: Z00.00 Encounter for general adult medical examination without abnormal findings (principal); I50.9 Heart failure, unspecified; N18.30 Chronic kidney disease, stage 3 unspecified; J44.9 Chronic obstructive pulmonary disease, unspecified; E11.22 Type 2 diabetes mellitus with diabetic chronic kidney disease; C34.90 Malignant neoplasm of unspecified part of unspecified bronchus or lung; R09.02 Hypoxemia
CPT/HCPCS: 1124F; G0439

== ENCOUNTER → 2023-06-03 23:59 | Outpatient (BNV) | payer MEDICARE, OTHER, SELFPAY | PROVIDERS: PCP Internal Medicine; Visit Provider Internal Medicine | DX: J44.9 Chronic obstructive pulmonary disease, unspecified (principal); I13.0 Hypertensive heart and chronic kidney disease with heart failure and stage 1 through stage 4 chronic kidney disease, or unspecified chronic kidney disease; I50.9 Heart failure, unspecified; N18.30 Chronic kidney disease, stage 3 unspecified; H40.9 Unspecified glaucoma | CPT/HCPCS: G0179; G0180 ==

== ENCOUNTER 2023-06-24 13:21 | Outpatient (AMB) | payer MEDICARE, OTHER, SELFPAY ==
--- NOTE | 2023-06-24 13:32 | MHC.PC.OV ---
Vital Signs 06/24/23 13:33 Height 5 ft 2 in Weight 157 lb BMI 28.7 BP 122/56 L Blood Pressure Location Lt brachial Position Sitting Intake Visit Reasons: Hospital follow up Intake Note: Pt is here today for a Hospital follow up visit. Allergies fluticasone furoate [From Trelegy Ellipta] Allergy (Intermediate, Verified 06/24/23 13:33) Cough umeclidinium [From Trelegy Ellipta] Allergy (Intermediate, Verified 06/24/23 13:33) Cough vilanterol [From Trelegy Ellipta] Allergy (Intermediate, Verified 06/24/23 13:33) Cough lisinopril Allergy (Unknown, Verified 06/24/23 13:33) hyperkalemia, worsening GFR Penicillins [PENICILLINS] Allergy (Unknown, Verified 06/24/23 13:33) RASH Medication List - Last Reconciled 06/24/23 by Jaimee Shah MD albuterol sulfate 90 mcg/actuation 2 puffs inhalation Q6H PRN Deangelo Wilson U-100 Insulin (insulin glargine) 30 units (0.3 mL) subcut DAILY NS blood-glucose sensor (Citelighter Jody 3 Sensor device) As directed clobetasol 0.05% grams topical BID dapagliflozin propanediol (Farxiga) 10 mg PO DAILY difluprednate 0.05% 1 drp ophthalmic-Right DAILY dorzolamide-timolol 22.3-6.8 mg/mL 1 drp ophthalmic-Right DAILY doxycycline hyclate 100 mg PO BID ergocalciferol (vitamin D2) 1,250 mcg PO QWEEK flu vac qv 2019(18yr up)rc(PF) mL IM furosemide 20 mg PO DAILY hydralazine 50 mg PO BID metoprolol succinate ER 100 mg PO DAILY nebulizers Nebulizer and supplies to use for updraft treatments Oxygen Home Use 1 lpm continuous O sat <90%, 2 lpm with exertion, for in home and portable conserving device pen needle, diabetic As directed once a day to inject insulin pen needle, diabetic (BD Thu 2nd Gen Pen Needle) As directed pravastatin 40 mg PO DAILY spironolactone 25 mg PO DAILY Trelegy Ellipta 200-62.5-25 mcg (ayrbppktiga-mrljryxzy-jyzdzeib) 1 ea PO DAILY NS Tobacco use date assessed: 06/24/23 Fall risk assessment: No Falls in past year Last assessed Fall Risk: 06/24/23 Dental Screening Dental Screen Date: 06/24/23 Did you have a dental visit in the last 12 months?: Yes Did you have a dental problem in the last 6 months where you did not have access to dental care?: No Was dental information given to patient?: Patient has dentist [facility] Hospital follow up HPI Details Patient presents for the follow-up of hospitalization at [facility] for CHF exacerbation hypoxia worsening lower extremity edema. Patient complains of persistent lower extremity edema without certainly give any improvement despite taking 40 mg of furosemide. Patient is not able to sleep in bed because of PND. Patient has moderate size right-sided pleural effusion but refused pleurocentesis. Patient has been using 3 L of supplemental O2 24 hours. She complains of right ankle redness and pain after she dropped scissors which hit the ankle 4 days ago. Patient denies fever chills or cough. [facility] Medical History Hypomagnesemia Chest pain Pneumonia Pruritus Hyperlipidemia Lung cancer Edema Cellulitis Pelvic mass Lung nodule PAD (peripheral artery disease) History of mammogram Glaucoma CKD (chronic kidney disease), stage III Peripheral vascular disease Diabetes COPD (chronic obstructive pulmonary disease) HTN (hypertension) Enlarged uterus Surgical History H/O colonoscopy Family History Father No problems noted. Mother No problems noted. Social History Housing: House Alcohol intake: unknown Patient Tobacco Use Status: Former Tobacco user Quit Date: 4 years ago e-Cigarette/Vaping Use: Never Used Current occupational status: retired Cognitive needs: No Hearing needs: No Vision needs: No Questionnaire PHQ-9 Over the last 2 weeks, how often have you been bothered by any of the following problems? 1. Little interest or pleasure in doing things: not at all 2. Feeling down, depressed, or hopeless: not at all 3. Trouble falling or staying asleep, or sleeping too much: not at all 4. Feeling tired or having little energy: more than half the days 5. Poor appetite or overeating: not at all 6. Feeling bad about yourself - or that you are a failure or have let yourself or your family down: not at all 7. Trouble concentrating on things, such as reading the newspaper or watching television: not at all 8. Moving or speaking so slowly that other people could have noticed. Or the opposite - being so fidgety or restless that you have been moving around a lot more than usual: not at all 9. Thoughts that you would be better off or of hurting yourself in some way: not at all Total score: 2 Depression Screening Interpretation: Negative Depression Screening Done: Yes Source: Developed by Drs. Tomasz Singh, Sandie Waller, Andrés Bobby and colleagues, with an educational shazia from [employer]. Thrive Questionnaire Date Thrive assessed: 06/24/23 I am a: Patient What is your living situation today?: I have a steady place to live Within the past 12 months, did the food you bought not last and you didn't have the money to get more?: Never true Within the past 12 months, did you worry whether your food would run out before you got money to buy more?: Never true Do you have trouble paying for medicines?: No Do you have trouble getting transportation to medical appointments?: No Do you have trouble paying your heating and electricity bill?: No Do you have trouble taking care of your child, family member or friend?: No Do you have trouble with day-to-day activities such as bathing, preparing meals, shopping, managing finances, etc.?: No Are you currently unemployed and looking for a job?: No Are you interested in more education?: No Please select the resources that you would like help with: None Currently or been in a relationship where the following occur: no concerns reported THRIVE Score: 0 AUDIT C Alcohol Use Questionnaire (AUDIT-C) 1. How often do you have a drink containing alcohol?: Never 3. How often do you have six or more drinks on one occasion?: Never Total Score: 0 OLIVIA-7 AMB Questionnaire OLIVIA-7 Date OLIVIA - 7 assessed: 06/24/23 Feeling nervous, anxious, or on edge: 0 = Not at all Not being able to stop or control worryin = Not at all Worrying too much about different things: 0 = Not at all Trouble relaxin = Not at all Being so restless that it is hard to sit still: 0 = Not at all Becoming easily annoyed or irritable: 0 = Not at all Feeling afraid as if something awful might happen: 0 = Not at all Total OLIVIA-7 score (0-4 normal; 5-9 mild; 10-14 moderate; 15-21 severe): 0 Source: Developed by Drs. Tomasz Singh, Sandie Waller, Andrés Bobby and colleagues, with an educational shazia from [employer]. Review of Systems Const All systems reviewed & are unremarkable except as noted in HPI and below Reports no additional complaints Eyes Reports no additional complaints ENT Reports no additional complaints Card Reports no additional complaints Resp Reports no additional complaints GI Reports no additional complaints Physical exam (Primary Care) Vital Signs: Last Vital Signs BP 122/56 L 06/24/23 13:33 BMI result Body Mass Index 28.7 Tobacco/Smoking Status: Tobacco use Status Tobacco use date assessed 06/24/23 06/24/23 13:34 Patient Tobacco Use Status Former Tobacco user 06/24/23 13:34 e-Cigarette/Vaping Use Never Used 06/24/23 13:34 PHQ-9: PHQ-9 Score PHQ-9: Total score 2 06/24/23 13:59 Depression Screening Interpretation: Negative Thrive Assessment: Date of Thrive Assessment Date Thrive assessed 06/24/23 06/24/23 13:59 Currently or been in a relationship where the following occur: no concerns reported Const General: no acute distress HENMT Ears: hearing grossly normal bilaterally Neck Neck: Yes supple Resp Effort & Inspection: normal respiratory effort Auscultation: diminished lung sounds on the right in the lower lung saucedo (1/2) Cardio Rhythm: regular rhythm Heart sounds: S1 normal heart sound present and S2 normal heart sound present GI Inspection: Yes normal to inspection Palpation (GI): Soft to palpation Extrem Other: 3+ pitting edema bilaterally Assessment and Plan Assessment & Plan (1) Pulmonary HTN: Comment: ECHO 04/13 nl LVEF, mild , severe pul HTN, severe TR Code(s): I27.20 - Pulmonary hypertension, unspecified Plan: Obtain echo to evaluate for ejection fraction, (2) CHF (congestive heart failure): Comment: Right-sided heart failure due to pulmonary hypertension Echo 04/13 Code(s): I50.9 - Heart failure, unspecified Plan: Blood pressure is low and amlodipine will be discontinued spironolactone 25 mg daily will be added to furosemide, basic metabolic panel and BNP will be checked in 1 week (3) HTN (hypertension): Comment: Intolerant to ACEI/ARB hyperkalemia/ worsening renal function Code(s): I10 - Essential (primary) hypertension Plan: Blood pressure is low and amlodipine will be discontinued. Patient will continue hydralazine and metoprolol (4) COPD (chronic obstructive pulmonary disease): Code(s): J44.9 - Chronic obstructive pulmonary disease, unspecified Plan: Continue Trelegy albuterol as needed and supplemental O2 (5) CKD (chronic kidney disease), stage III: Comment: Referred to regulatory submissions associate Code(s): N18.30 - Chronic kidney disease, stage 3 unspecified Plan: Monitor renal function (6) Diabetes: Comment: Metformin discontinued due to worsening renal function 02/11 Code(s): E11.9 - Type 2 diabetes mellitus without complications Plan: Increase Basaglar to 30 units and continue blood glucose monitoring regularly (7) Pleural effusion: Comment: moderate CXR 06/15, pt refused pleurocentesis Code(s): J90 - Pleural effusion, not elsewhere classified Plan: Patient will discussed pleurocentesis with her oncologist at [facility] during her next appointment in 1 week Orders: Orders CA echo transthoracic complete Today I10 - Essential (primary) hypertension, I27.20 - Pulmonary hypertension, unspecified, I50.9 - Heart failure, unspecified, J44.9 - Chronic obstructive pulmonary disease, unspecified B Type Natriuretic Peptide 1 Week I50.9 - Heart failure, unspecified, J90 - Pleural effusion, not elsewhere classified Basic Metabolic Panel 1 Week E11.9 - Type 2 diabetes mellitus without complications, I50.9 - Heart failure, unspecified, J90 - Pleural effusion, not elsewhere classified, N18.30 - Chronic kidney disease, stage 3 unspecified Medications: New spironolactone 25 mg PO DAILY 30 tabs 1RF doxycycline hyclate 100 mg PO BID 10 caps 0RF Changed From insulin glargine (Basaglar KwikPen U-100 Insulin) 20 units (0.2 mL) subcut DAILY 15 mL 3RF To Deangelo Wilson U-100 Insulin (insulin glargine) 30 units (0.3 mL) subcut DAILY 15 mL 3RF NS Discontinued amlodipine Discontinued Reason: Doctor's Order 2.5 mg PO DAILY 90 tabs 3RF Coding Level of Care Code Est Pt Level 4 (38603) Diagnoses Pulmonary HTN I27.20 CHF (congestive heart failure) I50.9 HTN (hypertension) I10 COPD (chronic obstructive pulmonary disease) J44.9 CKD (chronic kidney disease), stage III N18.30 Diabetes E11.9 Pleural effusion J90
[2023-06-24 13:33] VITALS: BP 122/56; BMI 28.7
== END 2023-06-24 15:12 | disposition home or self-care (01) ==
PROVIDERS: PCP Internal Medicine; Visit Provider Internal Medicine
DX: I13.0 Hypertensive heart and chronic kidney disease with heart failure and stage 1 through stage 4 chronic kidney disease, or unspecified chronic kidney disease (principal); N18.30 Chronic kidney disease, stage 3 unspecified; E11.22 Type 2 diabetes mellitus with diabetic chronic kidney disease; I50.9 Heart failure, unspecified; I27.20 Pulmonary hypertension, unspecified; J44.9 Chronic obstructive pulmonary disease, unspecified; J90 Pleural effusion, not elsewhere classified
CPT/HCPCS: 99214

== ENCOUNTER → 2023-07-13 12:58 | Outpatient (REF) | payer MEDICARE, OTHER, SELFPAY ==
--- NOTE | 2023-07-13 13:01 | CA_ITS ---
Transthoracic Echocardiogram Patient (Last, First, Middle): Cori Rogers, Gender: Female Date of : 1940 Age: 83 Procedure Date: 07/13/2023 Procedure Type: Transthoracic Echocardiogram Location: OP Height: 157.48 cm Weight: 68.49 kg BSA: 1.70 m2 Heart Rate: bpm BP: 141 / 70 mmHg Radiation / Chemistry Technician: CHELY Referring MD: Jaimee Shah MD Shirt Creaser: Kit Brandt MD Symptoms: I27.20 - Pulmonary hypertension, unspecified Study Quality: Fair ECG Rhythm: Sinus tachycardia with PACs Conclusions: - 1. Normal LV ejection fraction of 60 65% with pseudonormal filling pattern 2. Biatrial enlargement, right greater than left 3. Dilated right ventricle with rzhr-sg-fzigrxqu RV systolic dysfunction 4. Sxab-mu-vquwqixr aortic stenosis 5. Moderate mitral regurgitation 6. Moderate to severe tricuspid regurgitation 7. Severely elevated right ventricular systolic pressure with at least moderately elevated right atrial pressures 8. No gross pericardial effusion Findings Procedure Information The study quality is limited by the patients inability to tolerate the test. Left Ventricle Normal left ventricular size, thickness, and systolic function. The visually estimated ejection fraction is between 60-65%. There is a flattened septum in systole consistent with right ventricular pressure overload. Spectral Doppler is indicative of a pseudonormal filling pattern. E/E prime ratio is between 8 and 15 consistent with indeterminate filling pressures. Right Ventricle Moderately increased right ventricular cavity size. There is mild to moderately decreased right ventricular systolic function. Atria The left atrium is mildly dilated. Interatrial shunt cannot be excluded. The right atrium is moderately dilated. Aortic Valve There is mild calcification of the aortic valve. There is moderate thickening of the aortic valve. There is mild to moderate aortic valve stenosis. The peak aortic gradient is 16 mmHg.The mean gradient is 8 mmHg. There is no aortic valve regurgitation. Mitral Valve There is moderate anterior and severe posterior mitral leaflet thickening. There is moderate mitral annular calcification. There is mild mitral valve regurgitation. There is no mitral valve stenosis. Pulmonic Valve The pulmonic valve is likely normal. There is trace to mild pulmonic valve regurgitation. Tricuspid Valve Likely normal tricuspid valve structure and function. There is moderate to severe tricuspid valve regurgitation. Moderately elevated right atrial pressure. Severe pulmonary hypertension is present. Great Vessels The aorta was not well visualized. The pulmonary artery was not well visualized. Venous The inferior vena cava is mildly dilated and collapses less than 50% with inspiration. Pericardium/Pleural There is no evidence of pericardial effusion. Prior Study Comparison No significant change compared to prior study dated: 04/09/2022. Measurements 2D Linear Measurements IVSd: 0.89 0.6-0.9/0.6-1.0 cm LVIDd: 4.08 3.9-5.3/4.2-5.9 cm LVIDd Index: 2.40 2.4-3.2/2.2-3.1 cm/m2 LVIDs: 2.81 2.0-3.6 cm LVPWd: 1.01 0.7-1.1 cm LA Diam: 4.30 2.7-3.8/3.0-4.0 cm LAIDs Index: 2.53 1.5-2.3 cm/m2 LV Mass: 151.43 67-162/88-224 g LV Mass Index: 89.08 43-95/49-115 g/m2 LVOT Diam: 1.80 3.0+(-)1.3 cm Mitral Valve MV Pk E: 1.23 MV PK A: 0.97 MV Decel Time: 167.00 E/A: 1.30 E'Lateral: 8.99 E'Medial: 6.33 E/E' Med: 19.40 E/E' Lat: 13.70 PHT: 49.00 MVA PHT: 4.49 Decel [place]: 8.31 Aortic Valve AoV Pk Deng: 2.02 AoV Mn Deng: 1.26 AoV VTI: 0.38 AoV Pk Grad: 16.00 Aov Mn Grad: 8.00 OSEAS Cont.VTI: 1.36 LVOT LVOT Pk Deng: 1.02 LVOT Mn Deng: 0.61 LVOT VTI: 0.21 LVOT Pk Grad: 4.00 LVOT Mn Grad: 2.00 LVOT Diam: 1.80 LVOT Area: 2.54 Diastolic Function MV Pk E: 1.23 MV Pk A: 0.97 E/A: 1.30 E'Medial: 6.33 E/E' Med: 19.40 E' Laterial: 8.99 E/E' Lat: 13.70 Right Ventricle TAPSE (mm): 17.20 TVS' Deng: 11.00 Tricuspid Valve TR Pk Deng: 4.49 TR Pk Grad: 81.00 RA Press: 8.00 RVSP: 89.00 Great Vessels Aorta Sinus of Valsalva: 2.62 2.0-3.5 cm Updated in Other Vendor System with Status of Final Kit Brandt MD electronically signed on 07/14/2023 10:46:38 AM with status of Final
--- NOTE | 2023-07-13 14:06 | ECG_ITS ---
Test Reason : tachycardia Blood Pressure : / mmHG Vent. Rate : 108 BPM Atrial Rate : 110 BPM P-R Int : 176 ms QRS Dur : 070 ms QT Int : 346 ms P-R-T Axes : 072 078 019 degrees QTc Int : 463 ms Sinus tachycardia with occasional Premature atrial complexes with aberrancy Nonspecific ST abnormality Abnormal ECG No previous ECGs available Referred By: Kit Brandt Electronically Signed By:KIT BRANDT MD
== END ==
LOC: HO.CARD 12:58
PROVIDERS: PCP Internal Medicine; Visit Provider Internal Medicine
DX: I11.0 Hypertensive heart disease with heart failure (principal); I50.9 Heart failure, unspecified; I27.20 Pulmonary hypertension, unspecified; R00.0 Tachycardia, unspecified; J44.9 Chronic obstructive pulmonary disease, unspecified
CPT/HCPCS: 93005; 93306

== ENCOUNTER → 2023-07-13 14:06 | Outpatient (BNV) | payer MEDICARE, OTHER, SELFPAY | PROVIDERS: PCP Internal Medicine; Visit Provider Internal Medicine Cardiovascular Disease | DX: I35.0 Nonrheumatic aortic (valve) stenosis (principal); I36.1 Nonrheumatic tricuspid (valve) insufficiency | CPT/HCPCS: 93010; 93306 ==

== ENCOUNTER 2023-07-21 11:48 | Outpatient (AMB) | payer MEDICARE, OTHER, SELFPAY ==
--- NOTE | 2023-07-21 12:14 | A.OFFPC_ITS ---
Vital Signs 07/21/23 12:15 Height 5 ft 2 in Weight 157 lb BMI 28.7 BP 128/56 L Blood Pressure Location Lt brachial Position Sitting Pulse 94 Pulse Source Pulse Oximeter Pulse Oximetry (%) 91 L Oxygen Delivery Method Nasal Cannula Intake Visit Reasons: Follow up complex Intake Note: Pt is here today for a follow up visit. Pt states that she has been having pain in her L armpit that goes down her back on the L side. Allergies fluticasone furoate [From Trelegy Ellipta] Allergy (Intermediate, Verified 07/21/23 12:23) Cough umeclidinium [From Trelegy Ellipta] Allergy (Intermediate, Verified 07/21/23 12:23) Cough vilanterol [From Trelegy Ellipta] Allergy (Intermediate, Verified 07/21/23 12:23) Cough lisinopril Allergy (Unknown, Verified 07/21/23 12:23) hyperkalemia, worsening GFR Penicillins [PENICILLINS] Allergy (Unknown, Verified 07/21/23 12:23) RASH Medication List - Last Reconciled 07/21/23 by Jaimee Shah MD albuterol sulfate 90 mcg/actuation 2 puffs inhalation Q6H PRN Basaglar Katie U-100 Insulin (insulin glargine) 30 units (0.3 mL) subcut DAILY NS blood-glucose sensor (FreeStyle Jody 3 Sensor device) As directed clobetasol 0.05% grams topical BID dapagliflozin propanediol (Farxiga) 10 mg PO DAILY difluprednate 0.05% 1 drp ophthalmic-Right DAILY dorzolamide-timolol 22.3-6.8 mg/mL 1 drp ophthalmic-Right DAILY ergocalciferol (vitamin D2) 1,250 mcg PO QWEEK flu vac qv 2019(18yr up)rc(PF) mL IM furosemide 40 mg (2 x 20 mg) PO DAILY hydralazine 50 mg PO BID metolazone 2.5 mg PO Q OTHER DAY metoprolol succinate ER 150 mg (1.5 x 100 mg) PO DAILY nebulizers Nebulizer and supplies to use for updraft treatments Oxygen Home Use 1 lpm continuous O sat <90%, 2 lpm with exertion, for in home and portable conserving device pen needle, diabetic As directed once a day to inject insulin pen needle, diabetic (BD Thu 2nd Gen Pen Needle) As directed pravastatin 40 mg PO DAILY Trelegy Ellipta 200-62.5-25 mcg (vtpmiplnrhc-zkxgjbfwu-jvanmxbw) 1 ea PO DAILY NS Tobacco use date assessed: 06/24/23 HPI Follow up complex HPI Details Patient presents for the follow-up of right-sided heart failure, hypertension,type 2 diabetes chronic kidney disease stage 3, left pleural effusion COPD O2 dependent. Patient tried spironolactone in addition to 40 mg of furosemide for lower extremity edema without significant improvement. Echocardiogram showed normal LVEF, mild to moderate aortic stenosis, moderate MR and severe TR, MILD TO MODERATE RIGHT VENTRICULAR SYSTOLIC DYSFUNCTION AND SEVERELY ELEVATED RIGHT VENTRICULAR SYSTOLIC PRESSURE. Patient reports fasting blood glucose between 120-150. Hypertension is controlled on current medications. Patient follows up with thoracic surgeon at [facility] for left-sided pleural effusion and is contemplating therapeutic pleurocentesis and lung ca, status post radiation. [facility] Medical History (Updated 07/21/23 @ 15:18 by Jaimee Shah MD) Hypomagnesemia Chest pain Pneumonia Pruritus Hyperlipidemia Lung cancer Edema Cellulitis Pelvic mass Lung nodule PAD (peripheral artery disease) History of mammogram Glaucoma CKD (chronic kidney disease), stage III Peripheral vascular disease Diabetes COPD (chronic obstructive pulmonary disease) HTN (hypertension) Enlarged uterus Surgical History H/O colonoscopy Family History Father No problems noted. Mother No problems noted. Social History Housing: House Alcohol intake: unknown Patient Tobacco Use Status: Former Tobacco user Quit Date: 4 years ago e-Cigarette/Vaping Use: Never Used Current occupational status: retired Cognitive needs: No Hearing needs: No Vision needs: No Questionnaire Thrive Questionnaire Date Thrive assessed: 06/24/23 OLIVIA-7 AMB Questionnaire OLIVIA-7 Date OLIVIA - 7 assessed: 06/24/23 Source: Developed by Drs. Tomasz Singh, Sandie Waller, Andrés Bobby and colleagues, with an educational shazia from [employer]. Review of Systems Const All systems reviewed & are unremarkable except as noted in HPI and below Eyes Reports no additional complaints ENT Reports no additional complaints Card Reports no additional complaints Resp Reports no additional complaints GI Reports no additional complaints Reports no additional complaints Physical exam (Primary Care) Vital Signs: Last Vital Signs Pulse 94 07/21/23 12:15 BP 128/56 L 07/21/23 12:15 Pulse Ox 91 L 07/21/23 12:15 Oxygen Delivery Method Nasal Cannula 07/21/23 12:15 BMI result Body Mass Index 28.7 Tobacco/Smoking Status: Tobacco use Status Tobacco use date assessed 06/24/23 07/21/23 12:24 Patient Tobacco Use Status Former Tobacco user 07/21/23 12:24 e-Cigarette/Vaping Use Never Used 07/21/23 12:24 Thrive Assessment: Date of Thrive Assessment Date Thrive assessed 06/24/23 07/21/23 12:24 Const General: ill appearing Neck Neck: Yes supple Resp Effort & Inspection: able to speak in complete sentences Auscultation: diminished lung sounds on the left (1/2 up) Cardio Rhythm: regular rhythm Heart sounds: S1 normal heart sound present and S2 normal heart sound present Extrem Other: 4+ pitting edema bilaterally Assessment and Plan Assessment & Plan (1) Pleural effusion: Comment: moderate CXR 06/15, pt refused pleurocentesis Code(s): J90 - Pleural effusion, not elsewhere classified Plan: Follow-up with thoracic surgeon at [facility] (2) HTN (hypertension): Comment: Intolerant to ACEI/ARB hyperkalemia/ worsening renal function Code(s): I10 - Essential (primary) hypertension Plan: Continue current medications (3) CKD (chronic kidney disease), stage III: Comment: Referred to reporter anchor Code(s): N18.30 - Chronic kidney disease, stage 3 unspecified Plan: Monitor renal function (4) Diabetes: Code(s): E11.9 - Type 2 diabetes mellitus without complications Plan: Continue insulin and Farxiga (5) COPD (chronic obstructive pulmonary disease): Code(s): J44.9 - Chronic obstructive pulmonary disease, unspecified Plan: Continue Trelegy and supplemental O2 (6) Lung cancer: Comment: RLL, s/p bx, squamous cell CA, 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, Code(s): C34.90 - Malignant neoplasm of unspecified part of unspecified bronchus or lung Plan: Follow-up with the thoracic surgeon (7) Pulmonary HTN: Comment: ECHO 04/13 nl LVEF, mild , severe pul HTN, severe TR Code(s): I27.20 - Pulmonary hypertension, unspecified Plan: For worsening lower extremity edema add metolazone 2.5 mg every other day to 40 mg of furosemide, check basic metabolic panel in 1 week (8) CHF (congestive heart failure): Comment: Right-sided heart failure due to pulmonary hypertension Echo 04/13 Code(s): I50.9 - Heart failure, unspecified Plan: As above Orders: Orders Complete Blood Count Auto Diff 10 Days I10 - Essential (primary) hypertension, J90 - Pleural effusion, not elsewhere classified, N18.30 - Chronic kidney disease, stage 3 unspecified Comprehensive Met. Panel 10 Days I10 - Essential (primary) hypertension, J90 - Pleural effusion, not elsewhere classified, N18.30 - Chronic kidney disease, stage 3 unspecified Hemoglobin A1c 10 Days I10 - Essential (primary) hypertension, J90 - Pleural effusion, not elsewhere classified, N18.30 - Chronic kidney disease, stage 3 unspecified Medications: New metolazone 2.5 mg PO Q OTHER DAY 30 tabs 1RF Changed From furosemide 20 mg PO DAILY 60 tabs 6RF To furosemide 40 mg (2 x 20 mg) PO DAILY 60 tabs 6RF Discontinued spironolactone Discontinued Reason: Doctor's Order 25 mg PO DAILY 30 tabs 1RF Coding Level of Care Code Est Pt Level 4 (13146) Diagnoses Pleural effusion J90 HTN (hypertension) I10 CKD (chronic kidney disease), stage III N18.30 Diabetes E11.9 COPD (chronic obstructive pulmonary disease) J44.9 Lung cancer C34.90 Pulmonary HTN I27.20 CHF (congestive heart failure) I50.9
[2023-07-21 12:15] VITALS: BP 128/56; PULSE 94; O2SAT 91; BMI 28.7
== END 2023-07-21 15:21 | disposition home or self-care (01) ==
LOC: HO.HMGC 11:48
PROVIDERS: PCP Internal Medicine; Visit Provider Internal Medicine
DX: I12.9 Hypertensive chronic kidney disease with stage 1 through stage 4 chronic kidney disease, or unspecified chronic kidney disease (principal); E11.22 Type 2 diabetes mellitus with diabetic chronic kidney disease; N18.30 Chronic kidney disease, stage 3 unspecified; I50.9 Heart failure, unspecified; J44.9 Chronic obstructive pulmonary disease, unspecified; C34.90 Malignant neoplasm of unspecified part of unspecified bronchus or lung; I27.20 Pulmonary hypertension, unspecified; J90 Pleural effusion, not elsewhere classified
CPT/HCPCS: 99214

== ENCOUNTER 2023-08-16 12:02 | Outpatient (AMB) | payer MEDICARE, OTHER, SELFPAY ==
[2023-08-16 12:35] VITALS: BP 128/62; PULSE 91; O2SAT 94; BMI 25.6
--- NOTE | 2023-08-16 12:35 | MHC.PC.OV ---
Vital Signs 08/16/23 12:35 Height 5 ft 2 in Weight 140 lb BMI 25.6 BP 128/62 Blood Pressure Location Lt brachial Position Sitting Pulse 91 Pulse Source Pulse Oximeter Pulse Oximetry (%) 94 Oxygen Delivery Method Room Air Intake Visit Reasons: 1 month follow up Intake Note: Pt is here today for 1 month follow up visit. Allergies fluticasone furoate [From Trelegy Ellipta] Allergy (Intermediate, Verified 08/16/23 12:40) Cough umeclidinium [From Trelegy Ellipta] Allergy (Intermediate, Verified 08/16/23 12:40) Cough vilanterol [From Trelegy Ellipta] Allergy (Intermediate, Verified 08/16/23 12:40) Cough lisinopril Allergy (Unknown, Verified 08/16/23 12:40) hyperkalemia, worsening GFR Penicillins [PENICILLINS] Allergy (Unknown, Verified 08/16/23 12:40) RASH Medication List - Last Reconciled 08/16/23 by Jaimee Shah MD albuterol sulfate 90 mcg/actuation 2 puffs inhalation Q6H PRN Basaglar Katie U-100 Insulin (insulin glargine) 30 units (0.3 mL) subcut DAILY NS blood-glucose sensor (ARKeXyle Jody 3 Sensor device) As directed clobetasol 0.05% grams topical BID dapagliflozin propanediol (Farxiga) 10 mg PO DAILY difluprednate 0.05% 1 drp ophthalmic-Right DAILY dorzolamide-timolol 22.3-6.8 mg/mL 1 drp ophthalmic-Right DAILY ergocalciferol (vitamin D2) 1,250 mcg PO QWEEK flu vac qv 2019(18yr up)rc(PF) mL IM furosemide 40 mg (2 x 20 mg) PO DAILY hydralazine 50 mg PO BID metolazone 2.5 mg PO Q OTHER DAY metoprolol succinate ER 150 mg (1.5 x 100 mg) PO DAILY nebulizers Nebulizer and supplies to use for updraft treatments Oxygen Home Use 1 lpm continuous O sat <90%, 2 lpm with exertion, for in home and portable conserving device pen needle, diabetic As directed once a day to inject insulin pen needle, diabetic (BD Thu 2nd Gen Pen Needle) As directed pravastatin 40 mg PO DAILY Trelegy Ellipta 200-62.5-25 mcg ([id number]) 1 ea PO DAILY NS Tobacco use date assessed: 08/16/23 HPI 1 month follow up HPI Details Patient presents for the follow-up of type 2 diabetes O2 dependent COPD chronic kidney disease stage 3 hypertension. Patient reports improved lower extremity swelling but has been sleeping in the recliner because of PND and chronic cough, She follows up with [facility] for lung cancer status post radiation and will have a repeat CT in September [facility] Medical History Hypomagnesemia Chest pain Pneumonia Pruritus Hyperlipidemia Lung cancer Edema Cellulitis Pelvic mass Lung nodule PAD (peripheral artery disease) History of mammogram Glaucoma CKD (chronic kidney disease), stage III Peripheral vascular disease Diabetes COPD (chronic obstructive pulmonary disease) HTN (hypertension) Enlarged uterus Surgical History H/O colonoscopy Family History Father No problems noted. Mother No problems noted. Social History Housing: House Alcohol intake: unknown Patient Tobacco Use Status: Former Tobacco user Quit Date: 4 years ago e-Cigarette/Vaping Use: Never Used Current occupational status: retired Cognitive needs: No Hearing needs: No Vision needs: No Questionnaire Thrive Questionnaire Date Thrive assessed: 06/24/23 OLIVIA-7 AMB Questionnaire OLIVIA-7 Date OLIVIA - 7 assessed: 06/24/23 Source: Developed by Drs. Tomasz Singh, Sandie Waller, Andrés Bobby and colleagues, with an educational shazia from [employer]. Review of Systems Const All systems reviewed & are unremarkable except as noted in HPI and below Reports no additional complaints Eyes Reports no additional complaints ENT Reports no additional complaints Card Reports no additional complaints Resp Reports no additional complaints GI Reports no additional complaints Physical exam (Primary Care) Vital Signs: Last Vital Signs Pulse 91 08/16/23 12:35 BP 128/62 08/16/23 12:35 Pulse Ox 94 08/16/23 12:35 Oxygen Delivery Method Room Air 08/16/23 12:35 BMI result Body Mass Index 25.6 Tobacco/Smoking Status: Tobacco use Status Tobacco use date assessed 08/16/23 08/16/23 12:45 Patient Tobacco Use Status Former Tobacco user 08/16/23 12:39 e-Cigarette/Vaping Use Never Used 08/16/23 12:39 Thrive Assessment: Date of Thrive Assessment Date Thrive assessed 06/24/23 08/16/23 12:39 Const General: no acute distress HENMT Head: Yes normal to inspection Face and sinus: Yes normal facial exam Throat: Yes posterior oropharynx normal Neck Neck: Yes supple Resp Effort & Inspection: able to speak in complete sentences Auscultation: crackles and rhonchi Cardio Rhythm: regular rhythm Heart sounds: S1 normal heart sound present and S2 normal heart sound present GI Inspection: Yes normal to inspection Palpation (GI): Soft to palpation Percussion: Yes normal to percussion Auscultation: normal bowel sounds Extrem Other: 2+ pitting edema bilaterally Assessment and Plan Assessment & Plan (1) Lung cancer: Comment: RLL, s/p bx, squamous cell CA, 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, 2022, f/u [facility] oncology Code(s): C34.90 - Malignant neoplasm of unspecified part of unspecified bronchus or lung Plan: Follow-up with [facility] (2) HTN (hypertension): Comment: Intolerant to ACEI/ARB hyperkalemia/ worsening renal function Code(s): I10 - Essential (primary) hypertension Plan: Continue current medications (3) COPD (chronic obstructive pulmonary disease): Code(s): J44.9 - Chronic obstructive pulmonary disease, unspecified Plan: Continue Trelegy supplemental O2 and albuterol nebulized as needed (4) Diabetes: Code(s): E11.9 - Type 2 diabetes mellitus without complications Plan: ADA diet discussed with the patient. Continue insulin and Farxiga patient was advised to monitor her blood glucose before breakfast and 2 hours after dinner and will follow-up in 1 months (5) CKD (chronic kidney disease), stage III: Comment: Referred to rn review Code(s): N18.30 - Chronic kidney disease, stage 3 unspecified Plan: Avoid nephrotoxins and dehydration monitor renal function continue Farxiga Coding Level of Care Code Est Pt Level 4 (75312) Diagnoses Lung cancer C34.90 HTN (hypertension) I10 COPD (chronic obstructive pulmonary disease) J44.9 Diabetes E11.9 CKD (chronic kidney disease), stage III N18.30
== END 2023-08-16 13:31 | disposition home or self-care (01) ==
PROVIDERS: PCP Internal Medicine; Visit Provider Internal Medicine
DX: I12.9 Hypertensive chronic kidney disease with stage 1 through stage 4 chronic kidney disease, or unspecified chronic kidney disease (principal); J44.9 Chronic obstructive pulmonary disease, unspecified; N18.30 Chronic kidney disease, stage 3 unspecified; E11.22 Type 2 diabetes mellitus with diabetic chronic kidney disease; C34.90 Malignant neoplasm of unspecified part of unspecified bronchus or lung
CPT/HCPCS: 99214